=== PATIENT | male | born 1940 | race Caucasian/White ===

== ENCOUNTER → 2016-02-20 | Outpatient (CLI) | payer OTHER ==
[~2016-02-20] MED LIST: ACET-1256 PO; ASPI81TA28 PO; BND25 PO; CHOLTAB3 PO; CIPR-255 PO; CLOP1TAB15 PO; CRDCD180 PO; DRGTP25; DXM/4 PO; ERGO1TAB10 PO; Enteral Nutrition Formula PO; FLUT0.0529 NAE; FLUT0.15 NAE; FOLI400T41 PO; GADAVIST IV PRN; GEMF600T3 PO; HYDR-3419 PO; IPRASOL4 INH; ISOS120T5 PO; LSX20 PO; MEGE40TA13 PO; NEBMAC; NUTR-7 PO; OMEG10007 PO; OXYC1TAB3 PO; PRT40 PO; TPRSR50 PO; VANC1CAP19 PO; VITACAP38 PO; ZNT150 PO
--- NOTE | 2016-02-20 10:10 | DIAGNOSTIC IMAGING REPORT ---
MRI OF THE BRAIN WITHOUT AND WITH IV CONTRAST CLINICAL HISTORY: SECONDARY MALIGNANT NEOPLASM OF BRAIN COMPARISON STUDY: 10/10/2015 TECHNIQUE: Utilizing a 1.5 Mildred magnet and dedicated coil, multiplanar, multiecho imaging of the brain was performed pre and postcontrast administration. IV administration of 8 mL of Gadavist contrast was uneventful. FINDINGS: Diffusion-weighted images show no acute ischemic focus. Findings of atrophy and chronic small vessel change are similar compared to the prior exam. Slight compensatory prominence of the ventricular system unchanged. Postcontrast images transaxially suggests a subtle increase in subcortical activity characteristics the occipital lobes bilaterally. This is not seen on the postcontrast coronal imaging consistent with artifactual change. Previously described enhancing focus within the left temporal lobe and right cerebellum are no longer appreciated. No new enhancing focus is identified. Sella and parasellar regions are unremarkable. Considerable chronic small vessel change is stable. IMPRESSION: 1. Improved exam. 2. The enhancing focus within the left temporal lobe in the mid right cerebellum are no longer present. 3. No evidence for new interval or progressive process. 4. No evidence for abnormal postcontrast enhancement Electronically signed by: Se Bishop M.D. 02/20/2016 10:08 AM
== END | disposition home or self-care (01) ==
LOC: C.MRIBC 08:54
PROVIDERS: ATTEND Radiology Radiation Oncology
DX: C34.90 Malignant neoplasm of unspecified part of unspecified bronchus or lung (principal)

== ENCOUNTER → 2016-02-20 | Outpatient (CLI) | payer OTHER ==
[~2016-02-20] MED LIST changes: -GADAVIST IV PRN
[2016-02-20 17:56] LABS: FERRITIN 121.4 ng/ml (8.0-388.0)
== END | disposition home or self-care (01) ==
LOC: C.LABPVFM 07:45
PROVIDERS: ATTEND Internal Medicine Nephrology
DX: I10 Essential (primary) hypertension (principal); N18.3 Chronic kidney disease, stage 3 (moderate); C34.90 Malignant neoplasm of unspecified part of unspecified bronchus or lung; R80.9 Proteinuria, unspecified; Z72.0 Tobacco use; J44.9 Chronic obstructive pulmonary disease, unspecified; K59.09 Other constipation; A04.7 Enterocolitis due to Clostridium difficile

== ENCOUNTER → 2016-02-24 | Outpatient (CLI) | payer OTHER ==
[~2016-02-24] MED LIST changes: +OPTIRAY 320 IV PRN
--- NOTE | 2016-02-24 14:15 | DIAGNOSTIC IMAGING REPORT ---
CT OF THE CHEST WITH IV CONTRAST CLINICAL HISTORY: Small cell lung cancer. COMPARISON STUDY: Chest CT July 09, 2015 and PET/CT July 17, 2015. TECHNIQUE: Following IV administration of 70 mL of Optiray-320, helical axial images of the chest were obtained. Images were viewed in the axial, sagittal and coronal planes. IV contrast was administered without complication. CT DOSE: 381.67 mGy.cm FINDINGS: The heart is mildly enlarged. There is no pericardial effusion. Mild aneurysmal dilatation of the descending thoracic aorta is unchanged. There is extensive plaque. There are post surgical findings within visualized portions of the abdominal aorta. There is a left renal artery stent. A 1.8 cm right suprahilar nodule shown on image 121 of 361 is slightly increased in size since prior PET/CT. A few additional right suprahilar nodules have slightly increased since prior exam as well. Evaluation of the lungs is difficult due to extensive interstitial lung disease. There is traction bronchiectasis with emphysema and subpleural reticulation and honeycombing. The findings represent interstitial lung disease. There is no pneumothorax or pleural effusion. A T2 vertebral lesion is again noted. Involvement of the posterior elements was shown on prior exam. However, there has been interval development of epidural spread of tumor at this level with involvement of the vertebral body as well. There is associated narrowing of the central canal which is suboptimally assessed by CT but is likely to moderate in degree. Several neural foramen are narrowed. There is also a new T12 compression fracture which is mild in degree. This could be pathologic. Sclerosis of the posterior left 11th rib is new since prior exam. A 2.2 cm retroperitoneal nodule located superior medial to the right kidney is new since prior exam. The dominant previously described right retroperitoneal nodule is similar to prior exam. A few adjacent smaller nodules are new. Marked left renal atrophy is again noted. There are several suspected right renal cyst. IMPRESSION: 1. Findings consistent with progression of metastatic disease since exam of July 17, 2015. Epidural extension of tumor centered at the T2 level which is new since prior exam with moderate central canal and neural foraminal stenosis, suboptimally assessed by CT. In addition, a new T12 mild compression fracture is present which may be pathologic. 2. Slight increase in size of a right suprahilar nodule consistent with metastatic disease. 3. Interval development of several right retroperitoneal nodules adjacent to the previously described dominant retroperitoneal mass consistent with disease progression. Electronically signed by: Rupert Cabrera M.D. 02/24/2016 2:13 PM Dictated Date/Time: 02/24/2016 9:38 AM
== END | disposition home or self-care (01) ==
LOC: C.CTS 09:12
PROVIDERS: ATTEND Internal Medicine Hematology & Oncology
DX: C34.11 Malignant neoplasm of upper lobe, right bronchus or lung (principal); R91.1 Solitary pulmonary nodule; R93.5 Abnormal findings on diagnostic imaging of other abdominal regions, including retroperitoneum; M48.8X4 Other specified spondylopathies, thoracic region; M48.54XA Collapsed vertebra, not elsewhere classified, thoracic region, initial encounter for fracture; X58.XXXA Exposure to other specified factors, initial encounter

== ENCOUNTER 2016-03-22 10:13 | Inpatient (IN) | payer OTHER ==
[~2016-03-22] VITALS: Ht 177.8 cm; Wt 60.3 kg
[~2016-03-22 10:13] MED LIST changes: -CIPR-255 PO; -DXM/4 PO; -ERGO1TAB10 PO; -Enteral Nutrition Formula PO; -FLUT0.15 NAE; -IPRASOL4 INH; -LSX20 PO; -NEBMAC; -OPTIRAY 320 IV PRN; -OXYC1TAB3 PO; -PRT40 PO; -ZNT150 PO
[2016-03-22] MEDS ORDERED: SODIUM CHLORIDE 0.9% 1000ML 500 ML IV STA (10:47)
[2016-03-22] MEDS ORDERED: ERGO1TAB10 PO (11:06)
[2016-03-22] MEDS ORDERED: FLUT0.15 NAE (11:07)
[2016-03-22 11:15] LABS: URINE APPEARANCE CLOUDY (CLEAR); URINE BILIRUBIN NEG (NEG); URINE COLOR YELLOW; URINE EPITHELIAL CELL AUTO 0-5 /lpf (0-5); URINE NITRITE POS (NEG); URINE SPECIFIC GRAVITY 1.018 (1.000-1.030); UROBILINOGEN NEG (NEG); ZZURINE CULT IF INDIC CATH YES
[2016-03-22 11:17] LABS: MANUAL MICROSCOPIC REQUIRED? NO; REVIEW REQ? NO
[2016-03-22 11:29] LABS: HEMATOCRIT 27.7 % (42-52); MEAN CELL VOLUME 95.5 fL (80-100); MEAN CORPUSCULAR HEMOGLOBIN 32.8 pg (25-34); MEAN CORPUSCULAR HGB CONC 34.3 g/dl (32-36); WHITE BLOOD COUNT 2.18 K/uL (4.8-10.8)
[2016-03-22] MEDS ORDERED: CEFTRIAXONE SOD INJ 1 GM ADDVIAL IV STA (11:34)
[2016-03-22] MEDS ORDERED: DILTIAZEM BOLUS / DRIP IV STA (11:41)
--- NOTE | 2016-03-22 11:43 | DIAGNOSTIC IMAGING REPORT ---
CHEST ONE VIEW PORTABLE CLINICAL HISTORY: cough dyspnea COMPARISON STUDY: 01/06/2016 FINDINGS: Chronic bilateral parenchymal fibrotic and interstitial change. Baseline emphysematous change. Diaphragms smooth. Calcific angles are sharp. IMPRESSION: Emphysematous change with evidence for diffuse chronic bilateral parenchymal fibrotic scarring and interstitial change. No new or interval finding. Electronically signed by: Se Bishop M.D. 03/22/2016 11:41 AM Dictated Date/Time: 03/22/2016 11:41 AM
[2016-03-22 11:52] LABS: ALT/SGPT 10 U/L (12-78); AST/SGOT 13 U/L (15-37); BLOOD UREA NITROGEN 15 mg/dl (7-18); BUN/CREATININE RATIO 17.9 (10-20); CALCIUM 9.2 mg/dl (8.5-10.1); CARBON DIOXIDE 24 mmol/L (21-32); CHLORIDE 102 mmol/L (98-107); CREATININE 0.86 mg/dl (0.60-1.40); GLUCOSE 85 mg/dl (70-99); POTASSIUM 4.1 mmol/L (3.5-5.1); SODIUM 136 mmol/L (136-145)
[2016-03-22 11:57] LABS: ALB/GLOB RATIO 0.7 (0.9-2); ALKALINE PHOSPHATASE 62 U/L (45-117)
[2016-03-22 11:58] LABS: MEAN PLATELET VOLUME 9.2 fL (7.4-10.4); PLATELET COUNT 73 K/uL (130-400)
[2016-03-22] MEDS ORDERED: DILTIAZEM HCL 5 MG/ML 5 ML VIAL IV ONE (12:00)
[2016-03-22 12:01] LABS: COMPLETE YES; EOS % 1.4 %; IG% 2.3 %; LYMPH % 4.1 %; LYMPH ABS # 0.09 K/uL (1.2-3.4); MONO % 0.5 %; NEUT % 91.7 %; OVALOCYTES 1+; PLT ESTIMATE DECREASED
[2016-03-22] MEDS: DILTIAZEM HCL INJ 125 MG in DEXTROSE 5% 100ML IV PRN ×2 (12:15→17:18)
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
--- NOTE | 2016-03-22 14:22 | EMERGENCY ROOM VISIT NOTE ---
History Report prepared by Jeaneth: Toño Hanson Under the Supervision of: Dr. Raman Prado M.D. First contact with patient: 10:40 Chief Complaint: UNABLE TO VOID Stated Complaint: CAN'T URINATE X 2 DAYS History of Present Illness The patient is a 76 year old male who presents to the Emergency Room with complaints of persistent urinary retention for the past two days. The patient has been able to void some dribbles. The patient has noticed burning when he stops voiding. The patient denies any fevers or vomiting. The patient is s/p prostatectomy. The patient's has had to catheterize him in the past when he experienced urinary retention. She also notes that during past episodes of urinary retention he has passed blood clots in his urine. The patient wears a Fentanyl patch. He follows up with Dr. Augustin, Urologist. The patient has a history of atrial fibrillation. The patient is being treated for lung cancer. Source of History: patient, spouse/significant other Onset: two days ago Position: other (bladder) Quality: other (retention) Timing: other (persistent) Associated Symptoms: + urinary symptoms, No fevers, No vomiting Review of Systems See HPI for pertinent positives & negatives. A total of 10 systems reviewed and were otherwise negative. Past Medical & Surgical Medical Problems: (1) Abdominal aortic aneurysm (2) Ambulatory dysfunction (3) Carotid endarterectomy (4) diverticulitis, lung cancer recent chemo (5) Intractable back pain (6) kidney failure (7) l5 lesion (8) Lung cancer (9) Non-functioning kidney (10) prostate cancer (11) Sepsis Family History Diabetes mellitus Heart disease Social History Smoking Status: Current Every Day Smoker Alcohol Use: none Drug Use: none Marital Status: Housing Status: lives with family Occupation Status: retired Current/Historical Medications Scheduled Aspirin (Aspirin Ec), 81 MG PO DAILY Clopidogrel (Plavix), 75 MG PO DAILY Diltiazem HCl (Diltiazem HCl ER), 180 MG PO QAM Ergocalciferol (Vitamin D2), 1 TAB PO DAILY Fish Oil ([place]-3), 1 CAP PO DAILY Fluticasone Propionate (Nasal) (Flonase Allergy Relief), 1-2 SPRAYS BRITTANY DAILY Folic Acid (Folvite), 400 MCG PO DAILY Gemfibrozil (Lopid), 600 MG PO BID Isosorbide Mononitrate Ext Rel (Imdur Ext Rel), 120 MG PO QAM Megestrol Acetate (Megace), 40 MG PO QID Metoprolol Succinate (Metoprolol Succinate ER), 100 MG PO DAILY Nutritional Supplements (Boost), 1 CAN PO DAILY Vancomycin Hcl (Vancocin Hcl), 125 MG PO UD Vitamin E (E-1000), 1,000 UNITS PO DAILY Scheduled PRN Acetaminophen (Tylenol), 500 MG PO TID PRN for Pain Diphenhydramine Hcl (Benadryl), 50 MG PO HS PRN for Pain Hydrocodon/Acetaminophen 5MG/300MG (Vicodin (5MG/300MG)), 1 TAB PO Q4H PRN for Pain Miscellaneous Medications Fentanyl (Fentanyl) Allergies Coded Allergies: Prednisone (Verified Allergy, Mild, hives, 03/22/16) Physical Exam Vital Signs Date Time Temp Pulse Resp B/P Pulse Ox O2 Delivery O2 Flow Rate FiO2 03/22/16 14:13 119 16 156/80 96 Nasal Cannula 2.0 03/22/16 13:32 101 18 129/81 94 Room Air 03/22/16 13:00 101 18 151/88 97 Room Air 03/22/16 12:33 104 20 132/74 97 Room Air 03/22/16 12:24 107 20 104/72 97 Room Air 03/22/16 12:18 122 20 129/77 97 Room Air 03/22/16 11:21 141 20 156/94 95 Room Air 03/22/16 11:03 136 03/22/16 10:25 36.5 146 20 131/75 93 Room Air Physical Exam GENERAL: Patient is in no acute distress. HEENT: No acute trauma, normocephalic atraumatic, mucous membranes moist, no nasal congestion, no scleral icterus. NECK: No stridor, no adenopathy, no meningismus, trachea is midline. LUNGS: Course breath sounds bilaterally, no respiratory distress, breath sounds are equal. HEART: Tachycardic with a subtle systolic murmur, rhythm is irregular. ABDOMEN: Soft, tender over the bladder, bowel sounds positive, no hernias, no peritonitis. EXTREMITIES: No cyanosis or edema, full range of motion of all the joints without pain or difficulty, no signs for acute trauma. NEUROLOGIC: Oriented x 3, no acute motor or sensory deficits, no focal weakness. SKIN: No rash, no jaundice, no diaphoresis. Medical Decision & Procedures ER Provider Diagnostic Interpretation: Bladder scan showed 600 ccs of fluid. X-ray results as stated below per interpretation by me and the radiologist: CHEST ONE VIEW PORTABLE CLINICAL HISTORY: cough dyspnea COMPARISON STUDY: 01/06/2016 FINDINGS: Chronic bilateral parenchymal fibrotic and interstitial change. Baseline emphysematous change. Diaphragms smooth. Calcific angles are sharp. IMPRESSION: Emphysematous change with evidence for diffuse chronic bilateral parenchymal fibrotic scarring and interstitial change. No new or interval finding. Electronically signed by: Se Bishop M.D. 03/22/2016 11:41 AM Dictated Date/Time: 03/22/2016 11:41 AM Laboratory Results 03/22/16 11:15 Red Blood Count 2.90, Mean Corpuscular Volume 95.5, Mean Corpuscular Hemoglobin 32.8, Mean Corpuscular Hemoglobin Concent 34.3, Mean Platelet Volume 9.2, Neutrophils (%) (Auto) 91.7, Lymphocytes (%) (Auto) 4.1, Monocytes (%) (Auto) 0.5, Eosinophils (%) (Auto) 1.4, Basophils (%) (Auto) 0.0, Neutrophils # (Auto) 2.00, Lymphocytes # (Auto) 0.09, Monocytes # (Auto) 0.01, Eosinophils # (Auto) 0.03, Basophils # (Auto) 0.00 03/22/16 11:15 Test 03/22/16 11:00 03/22/16 11:15 Urine Color YELLOW Urine Appearance CLOUDY (CLEAR) Urine pH 6.0 (4.5-7.5) Urine Specific [place] 1.018 (1.000-1.030) Urine Protein 1+ (NEG) Urine Glucose (UA) NEG (NEG) Urine Ketones NEG (NEG) Urine Occult Blood 1+ (NEG) Urine Nitrite POS (NEG) Urine Bilirubin NEG (NEG) Urine Urobilinogen NEG (NEG) Urine Leukocyte Esterase MODERATE (NEG) Urine WBC (Auto) >30 /hpf (0-5) Urine RBC (Auto) 0-4 /hpf (0-4) Urine Hyaline Casts (Auto) 1-5 /lpf (0-5) Urine Epithelial Cells (Auto) 0-5 /lpf (0-5) Urine Bacteria (Auto) 4+ (NEG) White Blood Count 2.18 K/uL (4.8-10.8) Red Blood Count 2.90 M/uL (4.7-6.1) Hemoglobin 9.5 g/dL (14.0-18.0) Hematocrit 27.7 % (42-52) Mean Corpuscular Volume 95.5 fL (80-100) Mean Corpuscular Hemoglobin 32.8 pg (25-34) Mean Corpuscular Hemoglobin Concent 34.3 g/dl (32-36) Platelet Count 73 K/uL (130-400) Mean Platelet Volume 9.2 fL (7.4-10.4) Neutrophils (%) (Auto) 91.7 % Lymphocytes (%) (Auto) 4.1 % Monocytes (%) (Auto) 0.5 % Eosinophils (%) (Auto) 1.4 % Basophils (%) (Auto) 0.0 % Neutrophils # (Auto) 2.00 K/uL (1.4-6.5) Lymphocytes # (Auto) 0.09 K/uL (1.2-3.4) Monocytes # (Auto) 0.01 K/uL (0.11-0.59) Eosinophils # (Auto) 0.03 K/uL (0-0.5) Basophils # (Auto) 0.00 K/uL (0-0.2) RDW Standard Deviation 54.2 fL (36.4-46.3) RDW Coefficient of Variation 15.6 % (11.5-14.5) Immature Granulocyte % (Auto) 2.3 % Immature Granulocyte # (Auto) 0.05 K/uL (0.00-0.02) Platelet Estimate DECREASED Ovalocytes 1+ Anion Gap 10.0 mmol/L (3-11) Estimated GFR () 96.9 Estimated GFR (Non- 83.6 BUN/Creatinine Ratio 17.9 (10-20) Calcium Level 9.2 mg/dl (8.5-10.1) Magnesium Level 2.0 mg/dl (1.8-2.4) Total Bilirubin 0.7 mg/dl (0.2-1) Aspartate Amino Transf (AST/SGOT) 13 U/L (15-37) Alanine Aminotransferase (ALT/SGPT) 10 U/L (12-78) Alkaline Phosphatase 62 U/L (45-117) Troponin I 0.032 ng/ml (0-0.045) Total Protein 6.9 gm/dl (6.4-8.2) Albumin 2.9 gm/dl (3.4-5.0) Globulin 4.0 gm/dl (2.5-4.0) Albumin/Globulin Ratio 0.7 (0.9-2) Laboratory results reviewed by me. Medications Administered Medications (Trade) Dose Ordered Sig/Anderson Route Start Time Stop Time Status Last Admin Dose Admin Sodium Chloride (Nss 1000ml) 500 ml @ 999 mls/hr Q31M STAT IV 03/22/16 10:47 03/22/16 11:17 DC 03/22/16 11:20 999 MLS/HR Ceftriaxone Sodium (Rocephin Inj) 1 gm NOW STAT IV 03/22/16 11:34 03/22/16 11:35 DC 03/22/16 11:49 1 GM Diltiazem HCl 10 mg 10 mg TODAY@1200 ONCE IV 03/22/16 12:00 03/22/16 12:01 DC 03/22/16 12:15 10 MG Diltiazem HCl/ Dextrose (Cardizem Inj/D5 100ml) 125 ml @ 0 mls/hr Q0M PRN IV 03/22/16 12:00 04/21/16 11:59 03/22/16 17:18 10 MLS/HR ECG Indication: tachycardia Rate (beats per minute): 131 Rhythm: atrial fibrillation Findings: no acute ischemic change, no ectopy ED Course 1045: The patient was evaluated in room C9. A complete history and physical exam was performed. 1047: NSS 500 ml @ 999 mls/hr. 1134: Rocephin 1 gm Iv. 1141: Cardizem Bolus / Drip 1 ea IV. 1146: Patient is eating currently. He understands the need to stay in the hospital. 1200: Cardizem 125 mg / dextrose 125 ml @ 0 mls/hr, Cardizem 10 mg IV. 1223: Discussed the case with Dr. Guaman, [facility] Hospitalist. The patient will be evaluated. Medical Decision Differential diagnosis includes urinary retention, UTI, dehydration, renal failure, electrolyte imbalance, anemia, atrial fibrillation or flutter, [place]. There is a pancytopenia present. Looking back at his previous testing, this was present a few days ago with outpatient testing as well. He is not technically neutropenic. There was no significant electrolyte abnormality, kidney failure or hepatitis. Urinalysis does show evidence for infection, urine culture is pending. EKG showed a rapid A. fib, no acute ischemia. Chest film shows some chronic findings, no pneumonia or CHF. The patient presents with urinary retention. On workup, he was found to have a UTI and also atrial fibrillation. He has a history of A. fib. The patient received IV saline, IV ceftriaxone. A Maxwell catheter was placed to drain his bladder. He was given IV diltiazem and was placed on a diltiazem drip. The patient looks well, he is really asymptomatic with the A. fib, he does not complain of chest pain or dyspnea. He was able to eat a meal here without difficulty. The diltiazem helped the heart rate dramatically. I did think admission/observation was warranted. I spoke to case management. I talked to the patient and his family. The on-call hospitalist was consulted. Consults Time Called: 1220 Consulting Physician: Dr. Guaman [facility]. Returned Call: 1223 1223: Discussed the case with Dr. Guaman [facility]. The patient will be evaluated. Impression Primary Impression: Urinary retention Additional Impressions: UTI (urinary tract infection) Rapid atrial fibrillation Critical Care I have personally spent greater than 35 minutes of critical care time in the direct management of this patient. This includes bedside care, interpretation of diagnostic studies, and testing, discussion with consultants, patient, and family members, and other required patient management activities. This 35 minutes is in excess of all separately billable procedures. Scribe Attestation The scribe's documentation has been prepared under my direction and personally reviewed by me in its entirety. I confirm that the note above accurately reflects all work, treatment, procedures, and medical decision making performed by me. Departure Information Dispostion Being Evaluated By Hospitalist Drew Cornelius M.D. (PCP) Patient Instructions My [facility] Problem Qualifiers
[2016-03-22] MEDS ORDERED: NITROGLYCERIN 0.4 MG SL PER TAB CHARGE SL PRN (14:30)
[2016-03-22] MEDS ORDERED: DILTIAZEM BOLUS / DRIP IV PRN (14:56)
[2016-03-22] MEDS ORDERED: METOPROLOL TARTRATE 1 MG/ML VIAL IV STA (15:06)
[2016-03-22] MEDS ORDERED: METOPROLOL TARTRATE 1 MG/ML VIAL ONE (15:11)
[2016-03-22] MEDS ORDERED: ISOSORBIDE MONONITRATE 60 MG TABCR PO ONE (15:30)
[2016-03-22 17:00] VITALS: BP 159/87; PULSE 116; TEMP 36.5; Ht 177.8 cm; Wt 60.3 kg
[2016-03-22] MEDS: CHECK FENTANYL PATCH PLACEMENT SCH ×2 (17:00→23:46)
[2016-03-22] MEDS: MEGESTROL ACETATE 40 MG TAB PO SCH ×2 (17:51→21:53)
[2016-03-22] MEDS: DEXAMETHASONE INJ 6 MG in SYRINGE 0 ML IV SCH ×2 (18:25→23:47)
[2016-03-22 19:41] VITALS: BP 143/77; PULSE 103; TEMP 36.8; O2SAT 98
[2016-03-22 20:00] VITALS: O2SAT 98
[2016-03-22] MEDS ORDERED: HEPARIN SOD 5000 UNIT/0.5 ML CARP SQ SCH (21:00)
[2016-03-22] MEDS: GEMFIBROZIL 600 MG TAB PO SCH (21:53)
[2016-03-22 22:34] LABS: CKMB/CK RATIO 5.2 (0-3.0)
--- NOTE | 2016-03-22 23:49 | DIAGNOSTIC IMAGING REPORT ---
THORACIC SPINE MRI HISTORY: Assess for cord compression. 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 COMPARISON: Chest CT 02/24/2016. FINDINGS: Alignment is intact. Trace pleural effusions. Right retroperitoneal metastatic nodules are again noted. The dominant nodule measures 2.8 cm. Atrophic left kidney. Multiple renal cysts. Left lower lobe consolidation remains unchanged. There is complete replacement of the T2 vertebral body and posterior elements with a metastatic lesion. This demonstrates epidural extension surrounding the spinal canal which measures up to 5 mm in thickness. This results in moderate central canal narrowing and abuts but does not significantly compress the cord. The thoracic spinal cord demonstrates a normal signal intensity at this time. However, there is abnormal fluid signal within the epidural space posterior to the T2-T5 vertebral bodies. This is best seen on sagittal sequences images 9 and 10. This measures up to 4 mm in thickness. This abuts but does not significantly deform the thoracic spinal cord. This could represent cystic metastatic extension versus an epidural hematoma. An epidural abscess could also have a similar appearance but is considered less likely given the presentation of findings. Mild degenerative disc disease seen throughout the thoracic spine. Mild anterior wedging within the T12 vertebral body is not significantly changed. There is a 1 cm T2 hypointense focus along the inferior endplate of T12. This is concerning for metastatic deposit and is new from the 06/06/2015 examination. IMPRESSION: 1. Complete replacement of the T2 vertebral body and posterior elements with a metastatic lesion. The soft tissue component demonstrates epidural extension surrounding the spinal canal which results in moderate central canal narrowing. This abuts but does not significant compression of cord. 2. There is also an abnormal fluid signal within the epidural space posterior to the T2-T5 vertebral bodies. This measures up to 4 mm in thickness. This abuts but does not result in deformity of the thoracic spinal cord. This is concerning for an epidural hematoma or cystic metastatic extension. An epidural abscess could also have a similar appearance but is considered less likely given the presentation of findings. 3. A 1 cm lesion along the inferior endplate of T12 which also likely represents a metastatic deposit. Mild anterior wedge-shaped compression deformity is likely pathologic. This does not appear to be acute. 4. The thoracic spinal cord demonstrates a normal signal intensity. 5. Metastatic right retroperitoneal nodules are again noted. 6. Trace bilateral pleural effusions. 7. These findings were discussed with Dr. Cabrera at 11:50 PM on 03/22/2016. Electronically signed by: Paolo Hurtado M.D. 03/23/2016 12:01 AM Dictated Date/Time: 03/22/2016 11:34 PM
--- NOTE | 2016-03-22 23:58 | Progress Note ---
Progress Note contacted about MRI results no cord compression but mild- mod narrowing small fluid collection from T2-T5 most likely a epidural hematoma over an abscess
[2016-03-23] VITALS (11 sets, daily range): BP systolic 101–141; BP diastolic 64–79; PULSE 56–110; TEMP 36.6–36.8; O2SAT 98–100
--- NOTE | 2016-03-23 00:01 | DIAGNOSTIC IMAGING REPORT ---
LUMBAR SPINE MRI HISTORY: Assess for compression of the cauda equina. urinary retention in the setting of met ca to spine TECHNIQUE: Multiplanar multisequence MRI of the lumbar spine was performed without the use of contrast. COMPARISON: Lumbar spine MRI 07/26/2015. FINDINGS: For the purpose of the report the L5-S1 disc space will be located on axial image 23 of 25. Please refer to the same day thoracic spine MRI for further evaluation of this area. No significant change in the metastatic lesion seen within the posterior elements of the L5 level. There is soft tissue extension of tumor into the adjacent erector spinae muscles, unchanged. There may be minimal posterior epidural extension which is also unchanged. However, this does not result in significant mass effect on the thecal sac. No new metastatic lesions identified within the lumbar spine. Mild anterior wedging within the T12 vertebral body and a metastatic deposit are noted. No significant central canal narrowing. There are few small broad-based posterior disc bulges most pronounced at the L2-L3 level. These are not significantly changed. Mild neural foraminal narrowing at L5-S1 persists. Bilateral renal cysts. Mild edema within the erector spinae muscles within the mid to lower lumbar spine is again noted. There is a stable 5 mm metastatic lesion within the left L4 facet. No fractures of dictation within the lumbar spine. IMPRESSION: 1. Overall, no significant change within the lumbar spine compared to the prior study. 2. The metastatic lesions within the posterior elements of L4 and L5 remain unchanged. 3. No significant central canal narrowing. 4. No acute fractures within the lumbar spine. 5. Please refer to the same day thoracic spine MRI for further evaluation of the thoracic spine findings. Electronically signed by: Paolo Hurtado M.D. 03/23/2016 12:00 AM Dictated Date/Time: 03/22/2016 11:49 PM
[2016-03-23] MEDS: DILTIAZEM HCL INJ 125 MG in DEXTROSE 5% 100ML IV PRN ×3 (01:44→12:35)
[2016-03-23 05:21] LABS: HEMATOCRIT 25.8 % (42-52); MEAN CELL VOLUME 93.1 fL (80-100); MEAN CORPUSCULAR HEMOGLOBIN 32.5 pg (25-34); MEAN CORPUSCULAR HGB CONC 34.9 g/dl (32-36); RED BLOOD COUNT 2.77 M/uL (4.7-6.1); WHITE BLOOD COUNT 1.44 K/uL (4.8-10.8)
[2016-03-23] MEDS: DEXAMETHASONE INJ 6 MG in SYRINGE 0 ML IV SCH ×2 (05:29→12:38)
[2016-03-23 05:36] LABS: COMPLETE YES; IG% 2.8 %; LYMPH % 3.5 %; LYMPH ABS # 0.05 K/uL (1.2-3.4); MEAN PLATELET VOLUME 9.8 fL (7.4-10.4); MONO % 1.4 %; NEUT % 92.3 %; PLATELET COUNT 70 K/uL (130-400)
[2016-03-23 05:43] LABS: BUN/CREATININE RATIO 18.7 (10-20); CALCIUM 9.1 mg/dl (8.5-10.1); CREATININE 0.71 mg/dl (0.60-1.40)
[2016-03-23 05:51] LABS: CKMB/CK RATIO 5.3 (0-3.0)
[2016-03-23] MEDS: CHECK FENTANYL PATCH PLACEMENT SCH ×2 (08:26→16:00)
[2016-03-23] MEDS: FoLIC ACID TAB 400 MCG TAB PO SCH (08:27)
[2016-03-23] MEDS: CLOPIDOGREL BISULFATE 75 MG TAB PO SCH (08:27)
[2016-03-23] MEDS: ISOSORBIDE MONONITRATE 60 MG TABCR PO SCH (08:27)
[2016-03-23] MEDS: GEMFIBROZIL 600 MG TAB PO SCH ×2 (08:28→20:10)
[2016-03-23] MEDS: MEGESTROL ACETATE 40 MG TAB PO SCH ×4 (08:28→20:10)
[2016-03-23] MEDS: FLUTICASONE PROPIONATE NA SPR 16 GM BTL NAE SCH (08:28)
[2016-03-23] MEDS: METOPROLOL SUCC 50MG EXT REL TAB PO SCH (08:29)
[2016-03-23] MEDS ORDERED: BOOST VANILLA PO SCH ×2 (09:00)
[2016-03-23] MEDS ORDERED: ASPIRIN 81 MG ECTAB PO SCH (09:00)
--- NOTE | 2016-03-23 11:19 | Oncology Consultation ---
Oncology/Heme Consultation Date of Consultation: Mar 23, 2016. Attending Physician: Albert Garcia M.D. Reason for Consultation: Progressive small cell lung carcinoma History of Present Illness Mr. Mccartney is a 76-year-old gentleman with a history of extensive stage small cell lung carcinoma. Recently he was diagnosed also have [employer] metastasis. He has been treated with agents in the past including more recently Nivolumab but with recent CT scan showing progression he is now on single agent gemcitabine and receiving radiation therapy to his back. He is admitted now with urinary symptoms. He has a history of prostate carcinoma. He denies any fever or chills. He denies any back pain. Past Medical/Surgical History Medical Problems: (1) Anemia Status: Acute (2) Cancer of spinal column Status: Acute (3) Diarrhea Status: Acute (4) Diverticulitis Status: Acute (5) Fall Status: Acute (6) Leukopenia Status: Acute (7) Lower back pain Status: Acute (8) Lower extremity weakness Status: Acute (9) Lumbar compression fracture Status: Acute (10) Metastatic cancer to spine Status: Acute (11) Neutropenia Status: Acute (12) Rapid atrial fibrillation Status: Acute (13) Retrosternal chest pain Status: Acute (14) Small cell lung cancer Status: Acute (15) Urinary retention Status: Acute (16) UTI (urinary tract infection) Status: Acute Social History Problems: (1) Status post chemotherapy Status: Acute Family History Diabetes mellitus Heart disease Social History Smoking Status: Current Some Day Smoker Drug Use: none Marital Status: Housing Status: lives with family Occupation Status: retired Allergies Coded Allergies: Prednisone (Verified Allergy, Mild, hives, 03/22/16) Home Medications Scheduled Aspirin (Aspirin Ec), 81 MG PO DAILY Clopidogrel (Plavix), 75 MG PO DAILY Diltiazem HCl (Diltiazem HCl ER), 180 MG PO QAM Ergocalciferol (Vitamin D2), 1 TAB PO DAILY Fish Oil (Stonewall-3), 1 CAP PO DAILY Fluticasone Propionate (Nasal) (Flonase Allergy Relief), 1-2 SPRAYS BRITTANY DAILY Folic Acid (Folvite), 400 MCG PO DAILY Gemfibrozil (Lopid), 600 MG PO BID Isosorbide Mononitrate Ext Rel (Imdur Ext Rel), 120 MG PO QAM Megestrol Acetate (Megace), 40 MG PO QID Metoprolol Succinate (Metoprolol Succinate ER), 100 MG PO DAILY Nutritional Supplements (Boost), 1 CAN PO DAILY Vancomycin Hcl (Vancocin Hcl), 125 MG PO UD Vitamin E (E-1000), 1,000 UNITS PO DAILY Scheduled PRN Acetaminophen (Tylenol), 500 MG PO TID PRN for Pain Diphenhydramine Hcl (Benadryl), 50 MG PO HS PRN for Pain Hydrocodon/Acetaminophen 5MG/300MG (Vicodin (5MG/300MG)), 1 TAB PO Q4H PRN for Pain Miscellaneous Medications Fentanyl (Fentanyl) Current Inpatient Medications Current Inpatient Medications Medications (Trade) Dose Ordered Sig/Anderson Route Start Time Stop Time Status Last Admin Dose Admin Diltiazem HCl 125 mg/Dextrose 125 ml @ 0 mls/hr Q0M PRN IV 03/22/16 12:00 04/21/16 11:59 03/23/16 08:39 15 MLS/HR Ceftriaxone Sodium 2000 mg/ Dextrose 70 ml @ 100 mls/hr DAILY@1200 IV 03/23/16 12:00 04/01/16 11:59 Dexamethasone Sodium Phosphate/ Syringe (Decadron Inj/ Syringe) 1.5 ml @ 1 mls/min Q6H IV 03/22/16 18:00 04/21/16 14:29 03/23/16 05:29 1 MLS/MIN Heparin Sodium (Porcine) (Heparin Sq 5000 Unit/0.5ml) 5,000 unit Q12 SQ 03/22/16 21:00 04/21/16 20:59 Future Hold 03/22/16 21:11 5,000 UNIT Acetaminophen (Tylenol Tab) 650 mg Q4H PRN PO 03/22/16 14:30 04/21/16 14:29 Ondansetron HCl (Zofran Inj) 4 mg Q6H PRN IV 03/22/16 14:30 04/21/16 14:29 Nitroglycerin (Nitrostat Tab) 0.4 mg UD PRN SL 03/22/16 14:30 04/21/16 14:29 Aspirin (Ecotrin Tab) 81 mg DAILY PO 03/23/16 09:00 04/22/16 08:59 03/23/16 08:28 81 MG Clopidogrel Bisulfate (plAVix TAB) 75 mg DAILY PO 03/23/16 09:00 04/22/16 08:59 03/23/16 08:27 75 MG Fentanyl (Duragesic Patch) 25 mcg Q72H TD 03/25/16 09:00 04/08/16 08:59 Fluticasone Propionate (Flonase Nasal [place]) 1-2 sprays daily DAILY BRITTANY 03/23/16 09:00 04/22/16 08:59 03/23/16 08:28 1 SPRAYS Folic Acid (Folvite Tab) 400 mcg DAILY PO 03/23/16 09:00 04/22/16 08:59 03/23/16 08:27 400 MCG Gemfibrozil (Lopid Tab) 600 mg BID PO 03/22/16 21:00 04/21/16 20:59 03/23/16 08:28 600 MG Isosorbide Mononitrate (Imdur Ext Rel Tab) 120 mg QAM PO 03/23/16 09:00 04/22/16 08:59 03/23/16 08:27 120 MG Megestrol Acetate (Megace Tab) 40 mg QID PO 03/22/16 17:00 04/21/16 16:59 03/23/16 08:28 40 MG Metoprolol Succinate (Toprol Xl Tab) 100 mg DAILY PO 03/23/16 09:00 04/22/16 08:59 03/23/16 08:29 100 MG Enteral Nutritional Formula (Boost) 1 can DAILY PO 03/23/16 09:00 04/22/16 08:59 03/23/16 08:27 1 CAN Miscellaneous (Fentanyl Patch Remove & Waste) 1 ea Q3D N/A 03/25/16 08:59 04/24/16 08:58 Miscellaneous Information (Check Fentanyl Patch Placement) 1 ea QS N/A 03/22/16 16:00 04/21/16 15:59 03/23/16 08:26 1 EA Review of Systems Constitutional: Negative for night sweats, or fever Eyes: Negative for event change of vision ENT: Negative for epistaxis, nasal discharge, sore throat, or deafness Cardiovascular: Negative for chest pain, palpitations, dizziness, diaphoresis Respiratory: Negative for new shortness of breath,hemoptysis, or purulent cough Gastrointestinal: Negative for diarrhea, hematemesis, melena, nausea, vomiting , or dyspepsia Integumentary (skin): Negative for rash or jaundice discoloration Genitourinary: Negative for urinary frequency, hematuria, or dysuria Neurological: Negative for weakness, seizure activity, headache, or dizziness Lymphatic/Hematologic: Negative for petechiae, bleeding or new adenopathy Musculoskeletal: Negative for new joint or back pain Allergic/Immunologic: Negative for unusual rash or pruritis. Physical Exam Date Time Temp Pulse Resp B/P Pulse Ox O2 Delivery O2 Flow Rate FiO2 03/23/16 08:00 36.7 89 24 141/74 100 Nasal Cannula 2.0 03/23/16 04:36 98 Nasal Cannula 2.0 03/23/16 04:00 36.6 92 18 101/66 99 Nasal Cannula 2.0 03/23/16 00:36 98 Nasal Cannula 2.0 03/23/16 00:00 36.8 110 20 141/79 99 Nasal Cannula 2.0 03/22/16 20:00 98 Nasal Cannula 2.0 03/22/16 19:41 36.8 103 20 143/77 98 Nasal Cannula 2.0 03/22/16 17:00 36.5 116 17 159/87 Nasal Cannula 2.0 03/22/16 15:50 109 18 159/86 99 Nasal Cannula 2.0 03/22/16 15:40 126 18 129/99 99 Nasal Cannula 2.0 03/22/16 15:30 106 24 135/107 99 Nasal Cannula 2.0 03/22/16 15:28 124 18 153/111 03/22/16 15:25 135 18 170/109 99 Room Air 03/22/16 15:22 145 18 178/118 99 Nasal Cannula 2.0 03/22/16 15:18 135 175/113 03/22/16 14:13 119 16 156/80 96 Nasal Cannula 2.0 03/22/16 13:32 101 18 129/81 94 Room Air 03/22/16 13:00 101 18 151/88 97 Room Air 03/22/16 12:33 104 20 132/74 97 Room Air 03/22/16 12:24 107 20 104/72 97 Room Air 03/22/16 12:18 122 20 129/77 97 Room Air 03/22/16 11:21 141 20 156/94 95 Room Air Constitutional: vitals are stable. Thin pleasant gentleman Eyes: Eyes are KENJI EOMI without conjuctival erythema or icterus. ENT: External examination was negative for masses. Neck: Negative for masses or palpable thyromegaly Respiratory: Lung sounds were generally clear bilaterally but decreased throughout extremities: Negative for edema erythema Cardiovascular: Heart was RRR without significant murmur, gallops aoe rubs Gastrointestinal: No palpable hepatic or splenomegaly. The abdomen was soft with normal bowel sounds. Lymphatic system: there was no palpable peripheral lymphadenopathy Musculoskeletal System: The musculoskeletal system seemed concordant with age. Skin: The skin was negative for jaundice. Neurologic exam: The exam was negative for any focal findings. Deep tendon reflexes were equal and symmetrical. Psychiatric exam: Was essentially negative with normal mood and effect. Extremities: Negative for edema erythema Laboratory Results Last 24 Hours Test 03/22/16 21:57 03/23/16 05:00 Total Creatine Kinase 25 U/L 19 U/L Creatine Kinase MB 1.3 ng/ml 1.0 ng/ml Creatine Kinase MB Ratio 5.2 5.3 Troponin I 0.192 ng/ml 0.105 ng/ml White Blood Count 1.44 K/uL Red Blood Count 2.77 M/uL Hemoglobin 9.0 g/dL Hematocrit 25.8 % Mean Corpuscular Volume 93.1 fL Mean Corpuscular Hemoglobin 32.5 pg Mean Corpuscular Hemoglobin Concent 34.9 g/dl Platelet Count 70 K/uL Mean Platelet Volume 9.8 fL Neutrophils (%) (Auto) 92.3 % Lymphocytes (%) (Auto) 3.5 % Monocytes (%) (Auto) 1.4 % Eosinophils (%) (Auto) 0.0 % Basophils (%) (Auto) 0.0 % Neutrophils # (Auto) 1.33 K/uL Lymphocytes # (Auto) 0.05 K/uL Monocytes # (Auto) 0.02 K/uL Eosinophils # (Auto) 0.00 K/uL Basophils # (Auto) 0.00 K/uL RDW Standard Deviation 53.0 fL RDW Coefficient of Variation 15.5 % Immature Granulocyte % (Auto) 2.8 % Immature Granulocyte # (Auto) 0.04 K/uL Sodium Level 133 mmol/L Potassium Level 4.0 mmol/L Chloride Level 101 mmol/L Carbon Dioxide Level 22 mmol/L Anion Gap 10.0 mmol/L Blood Urea Nitrogen 13 mg/dl Creatinine 0.71 mg/dl Est Creatinine Clear Calc Drug Dose 74.3 ml/min Estimated GFR () 104.9 Estimated GFR (Non- 90.5 BUN/Creatinine Ratio 18.7 Random Glucose 142 mg/dl Calcium Level 9.1 mg/dl Magnesium Level 2.0 mg/dl Assessment & Plan He is mildly cytopenic and presumably this is from the gemcitabine he also is receiving radiation therapy to his back. I have been in touch with radiation therapy and they will resume his radiation therapy. He'll have a follow-up in our clinic post discharge. He is scheduled for treatment this week but we'll see how his stay goes before planning this week's therapy. The gemcitabine program is weekly day one, day 8 and day 15 every 28 days and he has received day one and day 8.
[2016-03-23] MEDS: CEFTRIAXONE SOD INJ 2,000 MG in DEXTROSE 5% 50ML 50 ML IV SCH (12:37)
[2016-03-23] MEDS: DILTIAZEM HCL 180 MG ER CAP PO SCH (13:32)
--- NOTE | 2016-03-23 14:08 | Hospitalist Progress Note ---
Hospitalist Progress Note Date of Service Mar 23, 2016. (Penny Mathis PA-C) Subjective Pt evaluation today including: conversation w/ patient, conversation w/ family , physical exam, chart review, lab review, review of studies, conversation w/ economic consultant, review of inpatient medication list Patient reports feeling better today. Denies any abdominal pain. No fever or chills. Says that his breathing is "okay." It is at baseline. Denies any chest pain. Additional Comments: 6 system review negative. Please see pertinent positives in the history of present illness section. (ePnny Mathis PA-C) Objective Vital Signs Date Time Temp Pulse Resp B/P Pulse Ox O2 Delivery O2 Flow Rate FiO2 03/23/16 12:00 36.6 63 20 136/75 98 Nasal Cannula 2.0 03/23/16 08:00 36.7 89 24 141/74 100 Nasal Cannula 2.0 03/23/16 08:00 100 Nasal Cannula 2.0 03/23/16 04:36 98 Nasal Cannula 2.0 03/23/16 04:00 36.6 92 18 101/66 99 Nasal Cannula 2.0 03/23/16 00:36 98 Nasal Cannula 2.0 03/23/16 00:00 36.8 110 20 141/79 99 Nasal Cannula 2.0 03/22/16 20:00 98 Nasal Cannula 2.0 03/22/16 19:41 36.8 103 20 143/77 98 Nasal Cannula 2.0 03/22/16 17:00 36.5 116 17 159/87 Nasal Cannula 2.0 03/22/16 15:50 109 18 159/86 99 Nasal Cannula 2.0 03/22/16 15:40 126 18 129/99 99 Nasal Cannula 2.0 03/22/16 15:30 106 24 135/107 99 Nasal Cannula 2.0 03/22/16 15:28 124 18 153/111 03/22/16 15:25 135 18 170/109 99 Room Air 03/22/16 15:22 145 18 178/118 99 Nasal Cannula 2.0 03/22/16 15:18 135 175/113 03/22/16 14:13 119 16 156/80 96 Nasal Cannula 2.0 (Penny Mathis PA-C) Physical Exam General Appearance: + mild distress, + cachetic Eyes: EOMI Neck: no JVD Respiratory/Chest: + pertinent finding (mild wheeze bilaterally. No crackles auscultated.) Cardiovascular: regular rate, rhythm, + pertinent finding (occasionally irregular) Abdomen: normal bowel sounds, non tender, soft Extremities: non-tender, no pedal edema Neurologic/Psychiatric: oriented x 3 Skin: warm/dry (Penny Mathis PA-C) Laboratory Results Last 24 Hours Test 03/22/16 21:57 03/23/16 05:00 Total Creatine Kinase 25 U/L 19 U/L Creatine Kinase MB 1.3 ng/ml 1.0 ng/ml Creatine Kinase MB Ratio 5.2 5.3 Troponin I 0.192 ng/ml 0.105 ng/ml White Blood Count 1.44 K/uL Red Blood Count 2.77 M/uL Hemoglobin 9.0 g/dL Hematocrit 25.8 % Mean Corpuscular Volume 93.1 fL Mean Corpuscular Hemoglobin 32.5 pg Mean Corpuscular Hemoglobin Concent 34.9 g/dl Platelet Count 70 K/uL Mean Platelet Volume 9.8 fL Neutrophils (%) (Auto) 92.3 % Lymphocytes (%) (Auto) 3.5 % Monocytes (%) (Auto) 1.4 % Eosinophils (%) (Auto) 0.0 % Basophils (%) (Auto) 0.0 % Neutrophils # (Auto) 1.33 K/uL Lymphocytes # (Auto) 0.05 K/uL Monocytes # (Auto) 0.02 K/uL Eosinophils # (Auto) 0.00 K/uL Basophils # (Auto) 0.00 K/uL RDW Standard Deviation 53.0 fL RDW Coefficient of Variation 15.5 % Immature Granulocyte % (Auto) 2.8 % Immature Granulocyte # (Auto) 0.04 K/uL Sodium Level 133 mmol/L Potassium Level 4.0 mmol/L Chloride Level 101 mmol/L Carbon Dioxide Level 22 mmol/L Anion Gap 10.0 mmol/L Blood Urea Nitrogen 13 mg/dl Creatinine 0.71 mg/dl Est Creatinine Clear Calc Drug Dose 74.3 ml/min Estimated GFR () 104.9 Estimated GFR (Non- 90.5 BUN/Creatinine Ratio 18.7 Random Glucose 142 mg/dl Calcium Level 9.1 mg/dl Magnesium Level 2.0 mg/dl (Penny Mathis PA-C) Assessment and Plan 76-year-old male presented to the ED with a main complaint of urinary retention for 2 days. The patient does have a history of a urethral stricture that was noted in his outpatient records earlier this month. Also found to be in rapid A. fib with a rate in the 130s. Urinalysis consistent with a UTI A. fib with RVR-likely secondary to sepsis. UTI source. Converted to sinus rhythm this morning -Continue telemetry monitoring throughout the afternoon. They possibly transfer to [facility] later today. -Restart patient's home dose of diltiazem ER 180 mg daily. Then DC Cardizem drip 1 hour later -Continue metoprolol ER 100 mg twice daily -Too much of a fall risk for anticoagulation UTI in the setting of urinary retention, sepsis-afebrile overnight. Vital signs are stable. Improving -Continue Rocephin 2 g IV daily -Continue Villafana for now -Urology input -Urine culture-more than 3 organisms. Will repeat Urinary retention-? neurogenic bladder -MRI of the spine reviewed. No signs of cord compression. -DC Decadron IV COPD-breathing baseline -nebs prn -Will continue with Decadron 4 mg po BID as pt's lungs are much improved today -Consider addition of Symbicort when pt isn't Neutropenic History of coronary artery disease. No anginal symptoms today. Had a mild elevation in his troponin, that is now trending down. This is likely secondary to A. fib with RVR/demand ischemia -Continue aspirin 81 mg daily -Continue Plavix 75 mg daily -Continue Imdur extended release 120 mg daily -Continue to hold home dose of Lasix 20 mg for one more day Metastatic small cell lung CA-mets to brain, thoracic, lumbar spine, retroperitoneum-recent CT/MRI shows disease progression -progressive disease at T2 and in the retroperitoneum -Wishes to continue chemo/radiation ? Fluid collection in the epidural space per MRI of the T2 -I would guess this is likely a hematoma given the compression fracture there as opposed to abscess -will monitor for increased back pain or neuro sx-would prefer to keep pt on ASA and Plavix for now C. diff colitis-resolving. No diarrhea -f/u ID outpt DVT prophylaxis -Heparin 5000 u BID -TEDS, SCDs CODE STATUS -LEVEL V DO NO RESUSCITATE DISPO -pt looking at hospice soon -PT/OT eval-? placement (Penny Mathis, PATroy) PA Physician Supervision Note: I interviewed and examined the patient. Discussed with Penny Mathis PAC and agree with findings and plan as documented in the note. Any exceptions or clarifications are listed here: None Pt feels improved after villafana is placed, at bedside, did see urology today and recommends d/c with villafana vitals stable , converted from afib to nsr car is reg lungs with rhonchi at bases R>L Pt with urinary retention and uti after office procedure for urethral stricture continue antibiotics, await culture oncology is seeing to help delineate future treatment plans of metastatic small cell ca of lung Documented By: Albert Garcia (Albert Garcia M.D.)
[2016-03-23] MEDS: BOOST VANILLA PO SCH ×2 (16:45)
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
[2016-03-24] VITALS (11 sets, daily range): BP systolic 132–179; BP diastolic 62–85; PULSE 61–76; TEMP 36.4–36.8; O2SAT 95–100
[2016-03-24] MEDS: CHECK FENTANYL PATCH PLACEMENT SCH ×4 (00:07→23:51)
[2016-03-24 06:37] LABS: MEAN CELL VOLUME 92.6 fL (80-100); MEAN CORPUSCULAR HEMOGLOBIN 32.6 pg (25-34); MEAN CORPUSCULAR HGB CONC 35.2 g/dl (32-36); WHITE BLOOD COUNT 2.33 K/uL (4.8-10.8)
[2016-03-24 06:42] LABS: PLATELET COUNT 69 K/uL (130-400)
[2016-03-24 06:43] LABS: BUN/CREATININE RATIO 26.9 (10-20); CALCIUM 9.1 mg/dl (8.5-10.1); CARBON DIOXIDE 22 mmol/L (21-32); CHLORIDE 99 mmol/L (98-107); CREATININE 0.77 mg/dl (0.60-1.40); GLUCOSE 119 mg/dl (70-99); POTASSIUM 4.5 mmol/L (3.5-5.1); SODIUM 133 mmol/L (136-145)
[2016-03-24 07:16] LABS: BLOOD UREA NITROGEN 21 mg/dl (7-18); PROSTATE SPECIFIC ANTIGEN < 0.010 ng/ml (0.000-4.000)
[2016-03-24] MEDS: BOOST VANILLA PO SCH ×6 (07:30→17:00)
[2016-03-24 07:45] LABS: COMPLETE YES; IG% 0.9 %; LYMPH % 4.7 %; LYMPH ABS # 0.11 K/uL (1.2-3.4); MONO % 4.3 %; NEUT % 90.1 %; OVALOCYTES 3+
[2016-03-24] MEDS: FLUTICASONE PROPIONATE NA SPR 16 GM BTL NAE SCH (07:58)
[2016-03-24] MEDS: DEXAMETHASONE 4 MG TAB PO SCH ×2 (08:04→19:58)
[2016-03-24] MEDS: METOPROLOL SUCC 50MG EXT REL TAB PO SCH (08:05)
[2016-03-24] MEDS: FoLIC ACID TAB 400 MCG TAB PO SCH (08:05)
[2016-03-24] MEDS: MEGESTROL ACETATE 40 MG TAB PO SCH ×4 (08:05→19:57)
[2016-03-24] MEDS: CLOPIDOGREL BISULFATE 75 MG TAB PO SCH (08:05)
[2016-03-24] MEDS: ISOSORBIDE MONONITRATE 60 MG TABCR PO SCH (08:06)
[2016-03-24] MEDS: GEMFIBROZIL 600 MG TAB PO SCH ×2 (08:06→19:57)
--- NOTE | 2016-03-24 08:31 | Progress Note ---
Subjective Date of Service: Mar 24, 2016. Subjective Pt evaluation today including: conversation w/ patient, chart review, lab review Voiding: villafana catheter in place (patent, draining, clear, yellow urine ) 76 yo male with stricture. Villafana remains in place draining clear, yellow urine. Pt denies pain this morning. Problem List Medical Problems: (1) Anemia Status: Acute (2) Cancer of spinal column Status: Acute (3) Diarrhea Status: Acute (4) Diverticulitis Status: Acute (5) Fall Status: Acute (6) Leukopenia Status: Acute (7) Lower back pain Status: Acute (8) Lower extremity weakness Status: Acute (9) Lumbar compression fracture Status: Acute (10) Metastatic cancer to spine Status: Acute (11) Neutropenia Status: Acute (12) Rapid atrial fibrillation Status: Acute (13) Retrosternal chest pain Status: Acute (14) Small cell lung cancer Status: Acute (15) Urinary retention Status: Acute (16) UTI (urinary tract infection) Status: Acute Social History Problems: (1) Status post chemotherapy Status: Acute Review of Systems Constitutional: No chills, No fever Respiratory: No shortness of breath Cardiac: No chest pain Abdomen: No nausea, No pain, No vomiting Male : No dysuria, No hematuria Heme: No abnormal bleeding/bruising Objective Vital Signs Date Time Temp Pulse Resp B/P Pulse Ox O2 Delivery O2 Flow Rate FiO2 03/24/16 07:30 36.4 64 24 166/85 99 3.0 03/24/16 04:15 36.8 76 19 179/84 100 Nasal Cannula 3.0 03/24/16 04:00 Nasal Cannula 2.0 03/24/16 04:00 154/82 03/24/16 00:03 36.8 66 17 160/80 100 Nasal Cannula 3.0 03/24/16 00:00 Nasal Cannula 2.0 03/23/16 20:00 Nasal Cannula 2.0 03/23/16 19:58 36.7 60 18 132/64 100 2.0 03/23/16 16:00 98 Nasal Cannula 2.0 03/23/16 15:53 36.6 56 18 141/76 100 2.0 03/23/16 14:56 36.6 56 20 136/75 100 03/23/16 13:34 65 100 03/23/16 12:00 98 Nasal Cannula 2.0 03/23/16 12:00 36.6 63 20 136/75 98 Nasal Cannula 2.0 Physical Exam General Appearance: no apparent distress Eyes: normal inspection ENT: hearing grossly normal Neck: no JVD Respiratory/Chest: no respiratory distress, no accessory muscle use Cardiovascular: no JVD Extremities: normal inspection Neurologic/Psychiatric: alert, normal mood/affect, oriented x 3 Skin: normal color Laboratory Results Last 24 Hours Test 03/24/16 05:20 White Blood Count 2.33 K/uL Red Blood Count 2.70 M/uL Hemoglobin 8.8 g/dL Hematocrit 25.0 % Mean Corpuscular Volume 92.6 fL Mean Corpuscular Hemoglobin 32.6 pg Mean Corpuscular Hemoglobin Concent 35.2 g/dl Platelet Count 69 K/uL Mean Platelet Volume 10.0 fL Neutrophils (%) (Auto) 90.1 % Lymphocytes (%) (Auto) 4.7 % Monocytes (%) (Auto) 4.3 % Eosinophils (%) (Auto) 0.0 % Basophils (%) (Auto) 0.0 % Neutrophils # (Auto) 2.10 K/uL Lymphocytes # (Auto) 0.11 K/uL Monocytes # (Auto) 0.10 K/uL Eosinophils # (Auto) 0.00 K/uL Basophils # (Auto) 0.00 K/uL RDW Standard Deviation 52.5 fL RDW Coefficient of Variation 15.6 % Immature Granulocyte % (Auto) 0.9 % Immature Granulocyte # (Auto) 0.02 K/uL Ovalocytes 3+ Sodium Level 133 mmol/L Potassium Level 4.5 mmol/L Chloride Level 99 mmol/L Carbon Dioxide Level 22 mmol/L Anion Gap 12.0 mmol/L Blood Urea Nitrogen 21 mg/dl Creatinine 0.77 mg/dl Est Creatinine Clear Calc Drug Dose 68.5 ml/min Estimated GFR () 101.5 Estimated GFR (Non- 87.5 BUN/Creatinine Ratio 26.9 Random Glucose 119 mg/dl Calcium Level 9.1 mg/dl Prostate Specific Antigen < 0.010 ng/ml Assessment and Plan A/P: Urethral stricture Recommend leaving villafana catheter in place for a few days. Will plan for outpatient trial of void at that time. May need intermittent CIC in the future to keep CIC patent. The pt will keep his f/u appt as scheduled with Dr. Augustin. Pt OK for d/c home when OK with primary service. Discharge planning: home
[2016-03-24] MEDS: ALBUT/IPRATROP 3MG/0.5MG NEB 3 ML VIAL INH SCH ×5 (08:52→19:26)
[2016-03-24] MEDS ORDERED: DEXAMETHASONE 4 MG TAB PO SCH (09:00)
[2016-03-24] MEDS: DILTIAZEM HCL 180 MG ER CAP PO SCH (09:32)
[2016-03-24] MEDS: CEFTRIAXONE SOD INJ 2,000 MG in DEXTROSE 5% 50ML 50 ML IV SCH (14:55)
--- NOTE | 2016-03-24 15:09 | Progress Note ---
Subjective Date of Service: Mar 24, 2016. Subjective pt has variable respiratory distress in part from copd and maybe underlying malignancy or xrt, family states is for chemo this and wonders if will get it here Problem List Medical Problems: (1) Anemia Status: Acute (2) Cancer of spinal column Status: Acute (3) Diarrhea Status: Acute (4) Diverticulitis Status: Acute (5) Fall Status: Acute (6) Leukopenia Status: Acute (7) Lower back pain Status: Acute (8) Lower extremity weakness Status: Acute (9) Lumbar compression fracture Status: Acute (10) Metastatic cancer to spine Status: Acute (11) Neutropenia Status: Acute (12) Rapid atrial fibrillation Status: Acute (13) Retrosternal chest pain Status: Acute (14) Small cell lung cancer Status: Acute (15) Urinary retention Status: Acute (16) UTI (urinary tract infection) Status: Acute Social History Problems: (1) Status post chemotherapy Status: Acute Review of Systems Constitutional: + fatigue, + weakness, No chills, No fever Respiratory: + cough, + dyspnea at rest, + dyspnea on exertion, + shortness of breath, + sputum, + wheezing Cardiac: No chest pain, No edema Abdomen: No diarrhea, No nausea, No pain, No vomiting Male : + dysuria, + hematuria, + problem reported (has villafana), No urinary frequency Objective Vital Signs Date Time Temp Pulse Resp B/P Pulse Ox O2 Delivery O2 Flow Rate FiO2 03/24/16 04:15 36.8 76 19 179/84 100 Nasal Cannula 3.0 03/24/16 04:00 Nasal Cannula 2.0 03/24/16 04:00 154/82 03/24/16 00:03 36.8 66 17 160/80 100 Nasal Cannula 3.0 03/24/16 00:00 Nasal Cannula 2.0 03/23/16 20:00 Nasal Cannula 2.0 03/23/16 19:58 36.7 60 18 132/64 100 2.0 03/23/16 16:00 98 Nasal Cannula 2.0 03/23/16 15:53 36.6 56 18 141/76 100 2.0 03/23/16 14:56 36.6 56 20 136/75 100 03/23/16 13:34 65 100 03/23/16 12:00 98 Nasal Cannula 2.0 03/23/16 12:00 36.6 63 20 136/75 98 Nasal Cannula 2.0 03/23/16 08:00 36.7 89 24 141/74 100 Nasal Cannula 2.0 03/23/16 08:00 100 Nasal Cannula 2.0 Physical Exam General Appearance: + mild distress, + thin Neck: supple, no JVD Respiratory/Chest: + respiratory distress, + decreased breath sounds, + accessory muscle use Cardiovascular: regular rate, rhythm, + systolic murmur Abdomen: normal bowel sounds, non tender, soft Extremities: no pedal edema, no calf tenderness Neurologic/Psychiatric: alert, oriented x 3 Laboratory Results Last 24 Hours Test 03/24/16 05:20 White Blood Count 2.33 K/uL Red Blood Count 2.70 M/uL Hemoglobin 8.8 g/dL Hematocrit 25.0 % Mean Corpuscular Volume 92.6 fL Mean Corpuscular Hemoglobin 32.6 pg Mean Corpuscular Hemoglobin Concent 35.2 g/dl Platelet Count 69 K/uL Mean Platelet Volume 10.0 fL RDW Standard Deviation 52.5 fL RDW Coefficient of Variation 15.6 % Sodium Level 133 mmol/L Potassium Level 4.5 mmol/L Chloride Level 99 mmol/L Carbon Dioxide Level 22 mmol/L Anion Gap 12.0 mmol/L Blood Urea Nitrogen 21 mg/dl Creatinine 0.77 mg/dl Est Creatinine Clear Calc Drug Dose 68.5 ml/min Estimated GFR () 101.5 Estimated GFR (Non- 87.5 BUN/Creatinine Ratio 26.9 Random Glucose 119 mg/dl Calcium Level 9.1 mg/dl Prostate Specific Antigen < 0.010 ng/ml Assessment and Plan 76-year-old male presented to the ED with a main complaint of urinary retention , history of recent outpt manipulation of a urethral stricture by urology via cystoscopy. had abnormal ua on presentation consistent with uti poa and was in AFIB RVR likely from physiologic stressors, since has developed acute on chronic hypoxic respiratory failure from minor COPD exacerbation A. fib with RVR secondary to sepsis, UTI source,poa. Converted to sinus rhythm 03/23 Stopped GTT and resume diltiazem ER 180 mg daily. plus metoprolol 100 bid Sepsis from uti poa, Rocephin 2 g IV daily -Urology did see and recommends discharge with villafana and will follow in office to determine need for CIC vs not COPD-with history of small cell lung cancer , minor exacerbation Decadron 4 mg po BID plus nebs, pt states uses oxygen and nebs at home coronary artery disease. 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 DVT prophylaxis platelets are lower and caution with thoracic spine hematoma, use mechanical means although high risk with CA LEVEL V DO NO RESUSCITATE
[2016-03-24] MEDS: ACETAMINOPHEN 325 MG TAB PO PRN (16:19)
[2016-03-25] VITALS (9 sets, daily range): BP systolic 131–172; BP diastolic 69–84; PULSE 61–80; TEMP 36.7–36.9; O2SAT 96–98
[2016-03-25 05:58] LABS: HEMATOCRIT 25.5 % (42-52); MEAN CELL VOLUME 92.4 fL (80-100); MEAN CORPUSCULAR HEMOGLOBIN 32.6 pg (25-34); MEAN CORPUSCULAR HGB CONC 35.3 g/dl (32-36); RED BLOOD COUNT 2.76 M/uL (4.7-6.1); WHITE BLOOD COUNT 2.64 K/uL (4.8-10.8)
[2016-03-25 05:59] LABS: BASO % 0.4 %; BASO ABS # 0.01 K/uL (0-0.2); COMPLETE YES; IG% 0.8 %; LYMPH ABS # 0.21 K/uL (1.2-3.4); MEAN PLATELET VOLUME 10.1 fL (7.4-10.4); MONO % 0.8 %; PLATELET COUNT 47 K/uL (130-400)
[2016-03-25] MEDS: ALBUT/IPRATROP 3MG/0.5MG NEB 3 ML VIAL INH SCH ×4 (07:38→19:38)
[2016-03-25] MEDS: BOOST VANILLA PO SCH ×4 (08:00→17:44)
[2016-03-25] MEDS: FLUTICASONE PROPIONATE NA SPR 16 GM BTL NAE SCH (08:00)
[2016-03-25] MEDS: CHECK FENTANYL PATCH PLACEMENT SCH ×2 (08:00→16:10)
--- NOTE | 2016-03-25 08:22 | Progress Note ---
Subjective Date of Service: Mar 25, 2016. Subjective Pt evaluation today including: chart review, lab review Voiding: villafana catheter in place (patent, draining clear, yellow urine ) 76 yo male with urethral stricture. Villafana remains in place this morning. Pt resting comfortably, and not disturbed. UC&S noted to be negative. Problem List Medical Problems: (1) Anemia Status: Acute (2) Cancer of spinal column Status: Acute (3) Diarrhea Status: Acute (4) Diverticulitis Status: Acute (5) Fall Status: Acute (6) Leukopenia Status: Acute (7) Lower back pain Status: Acute (8) Lower extremity weakness Status: Acute (9) Lumbar compression fracture Status: Acute (10) Metastatic cancer to spine Status: Acute (11) Neutropenia Status: Acute (12) Rapid atrial fibrillation Status: Acute (13) Retrosternal chest pain Status: Acute (14) Small cell lung cancer Status: Acute (15) Urinary retention Status: Acute (16) UTI (urinary tract infection) Status: Acute Social History Problems: (1) Status post chemotherapy Status: Acute Review of Systems Pt sleeping comfortably this morning, and not disturbed. Objective Vital Signs Date Time Temp Pulse Resp B/P Pulse Ox O2 Delivery O2 Flow Rate FiO2 03/25/16 07:57 36.7 69 20 172/84 98 Room Air 03/25/16 07:38 69 16 96 Nasal Cannula 2.0 03/25/16 00:05 Room Air 03/24/16 20:00 Room Air 03/24/16 19:26 61 16 96 Room Air 03/24/16 17:23 Room Air 03/24/16 17:08 36.7 66 24 146/71 96 Room Air 03/24/16 16:52 36.6 67 27 97 2.0 03/24/16 16:00 36.6 27 137/73 97 Room Air 03/24/16 16:00 97 Room Air 03/24/16 15:48 65 18 95 Nasal Cannula 2.0 03/24/16 11:02 36.6 67 20 132/62 100 Nasal Cannula 03/24/16 08:53 70 18 96 Nasal Cannula 2.0 03/24/16 08:26 Nasal Cannula 2.5 Physical Exam General Appearance: no apparent distress Neck: no JVD Respiratory/Chest: no respiratory distress, no accessory muscle use Cardiovascular: no JVD Extremities: normal inspection Neurologic/Psychiatric: + pertinent finding (Pt sleeping. ) Skin: normal color Laboratory Results Last 24 Hours Test 03/25/16 05:46 White Blood Count 2.64 K/uL Red Blood Count 2.76 M/uL Hemoglobin 9.0 g/dL Hematocrit 25.5 % Mean Corpuscular Volume 92.4 fL Mean Corpuscular Hemoglobin 32.6 pg Mean Corpuscular Hemoglobin Concent 35.3 g/dl Platelet Count 47 K/uL Mean Platelet Volume 10.1 fL Neutrophils (%) (Auto) 90.0 % Lymphocytes (%) (Auto) 8.0 % Monocytes (%) (Auto) 0.8 % Eosinophils (%) (Auto) 0.0 % Basophils (%) (Auto) 0.4 % Neutrophils # (Auto) 2.38 K/uL Lymphocytes # (Auto) 0.21 K/uL Monocytes # (Auto) 0.02 K/uL Eosinophils # (Auto) 0.00 K/uL Basophils # (Auto) 0.01 K/uL RDW Standard Deviation 52.3 fL RDW Coefficient of Variation 15.6 % Immature Granulocyte % (Auto) 0.8 % Immature Granulocyte # (Auto) 0.02 K/uL Nucleated RBC Absolute Count (auto) 0.02 K/uL Nucleated Red Blood Cells % 0.8 % Assessment and Plan A/P: Urethral stricture Recommend leaving villafana catheter in place for 1 week. Will plan for outpatient trial of void at that time. May need intermittent CIC in the future to keep CIC patent. Will arrange for outpatient f/u with Dr. Augustin in 2-3 weeks. Pt OK for d/c home when OK with primary service. No further management at this time. Recall PRN issues. Thanks for allowing us to participate in his care. Discharge planning: home
[2016-03-25] MEDS: DEXAMETHASONE 4 MG TAB PO SCH ×2 (08:39→20:48)
[2016-03-25] MEDS: DILTIAZEM HCL 180 MG ER CAP PO SCH (08:40)
[2016-03-25] MEDS: FoLIC ACID TAB 400 MCG TAB PO SCH (08:41)
[2016-03-25] MEDS: ISOSORBIDE MONONITRATE 60 MG TABCR PO SCH (08:41)
[2016-03-25] MEDS: CLOPIDOGREL BISULFATE 75 MG TAB PO SCH (08:42)
[2016-03-25] MEDS: METOPROLOL SUCC 50MG EXT REL TAB PO SCH (08:42)
[2016-03-25] MEDS: MEGESTROL ACETATE 40 MG TAB PO SCH ×4 (08:42→20:48)
[2016-03-25] MEDS: GEMFIBROZIL 600 MG TAB PO SCH ×2 (08:42→20:47)
[2016-03-25] MEDS ORDERED: FENTANYL PATCH REMOVE & WASTE SCH (08:59)
[2016-03-25] MEDS ORDERED: FENTANYL 25 MCG/HR TDSY TD SCH (09:00)
[2016-03-25] MEDS: ACETAMINOPHEN 325 MG TAB PO PRN (10:54)
[2016-03-25] MEDS: CEFTRIAXONE SOD INJ 2,000 MG in DEXTROSE 5% 50ML 50 ML IV SCH (12:49)
--- NOTE | 2016-03-25 13:25 | Hospitalist Progress Note ---
Hospitalist Progress Note Date of Service Mar 25, 2016. (Penny Mathis PA-C) Subjective Pt evaluation today including: conversation w/ patient, physical exam, chart review, lab review, conversation w/ financial services consultant, review of inpatient medication list Patient reports pain in his back today. Worse than normal. He had a radiation session yesterday, which seems to make the pain worse. He says that his breathing is baseline. Denies any increased dyspnea. mild productive cough. Not new. Denies any chest pain or pressure. No heart palpitations. Additional Comments: 6 system review negative. Please see pertinent positives in the history of present illness section. (Penny Mathis PA-C) Objective Vital Signs Date Time Temp Pulse Resp B/P Pulse Ox O2 Delivery O2 Flow Rate FiO2 03/25/16 11:15 80 16 96 Room Air 03/25/16 10:55 36.7 68 20 150/69 96 Room Air 03/25/16 09:28 98 Room Air 03/25/16 08:00 Room Air 03/25/16 07:57 36.7 69 20 172/84 98 Room Air 03/25/16 07:38 69 16 96 Nasal Cannula 2.0 03/25/16 00:05 Room Air 03/24/16 20:00 Room Air 03/24/16 19:26 61 16 96 Room Air 03/24/16 17:23 Room Air 03/24/16 17:08 36.7 66 24 146/71 96 Room Air 03/24/16 16:52 36.6 67 27 97 2.0 03/24/16 16:00 36.6 27 137/73 97 Room Air 03/24/16 16:00 97 Room Air 03/24/16 15:48 65 18 95 Nasal Cannula 2.0 (Penny Mathis PA-C) Physical Exam General Appearance: + mild distress (in moderate discomfort) Neck: no JVD Respiratory/Chest: + pertinent finding (mild diffuse wheeze. Crackles at the bases bilaterally.) Cardiovascular: + irregularly irregular Abdomen: normal bowel sounds, non tender, soft Extremities: non-tender, no pedal edema Neurologic/Psychiatric: alert, oriented x 3 Skin: + pertinent finding (petechiae noted on the face and arms) (Penny Mathis PA-C) Laboratory Results Last 24 Hours Test 03/25/16 05:46 White Blood Count 2.64 K/uL Red Blood Count 2.76 M/uL Hemoglobin 9.0 g/dL Hematocrit 25.5 % Mean Corpuscular Volume 92.4 fL Mean Corpuscular Hemoglobin 32.6 pg Mean Corpuscular Hemoglobin Concent 35.3 g/dl Platelet Count 47 K/uL Mean Platelet Volume 10.1 fL Neutrophils (%) (Auto) 90.0 % Lymphocytes (%) (Auto) 8.0 % Monocytes (%) (Auto) 0.8 % Eosinophils (%) (Auto) 0.0 % Basophils (%) (Auto) 0.4 % Neutrophils # (Auto) 2.38 K/uL Lymphocytes # (Auto) 0.21 K/uL Monocytes # (Auto) 0.02 K/uL Eosinophils # (Auto) 0.00 K/uL Basophils # (Auto) 0.01 K/uL RDW Standard Deviation 52.3 fL RDW Coefficient of Variation 15.6 % Immature Granulocyte % (Auto) 0.8 % Immature Granulocyte # (Auto) 0.02 K/uL Nucleated RBC Absolute Count (auto) 0.02 K/uL Nucleated Red Blood Cells % 0.8 % (Penny Mathis, REMI) Assessment and Plan 76-year-old male presented to the ED with a main complaint of urinary retention for 2 days. The patient does have a history of a urethral stricture that was noted in his outpatient records earlier this month. Also found to be in rapid A. fib with a rate in the 130s. Urinalysis consistent with a UTI A. fib with RVR-likely secondary to sepsis. UTI source. Converted to sinus rhythm on 03/23 -was on diltiazem drip. This has been discontinued -Continue home dose of diltiazem ER 180 mg daily. -Continue metoprolol ER 100 mg twice daily -Too much of a fall risk for anticoagulation (also Thrombocytopenia) Pancytopenia-platelets worsening-petechiae on exam -DVT prophylaxis was discontinued -ASA taken off. Will d/c Plavix for now -We'll discuss with heme/onc UTI in the setting of urinary retention, sepsis-stable -Continue Rocephin 2 g IV daily -Urology on board. Will be discharged with a Maxwell and urologic follow-up in 2- 3 weeks -Unable to obtain a good urine culture Urinary retention-? neurogenic bladder vs urethral stricture -MRI of the spine reviewed. No signs of cord compression. -DC Decadron IV COPD-breathing baseline -nebs prn -Continue Decadron 4 mg po BID History of coronary artery disease. No anginal symptoms today. Had a mild elevation in his troponin, that is now trending down. This is likely secondary to A. fib with RVR/demand ischemia -Continue Imdur extended release 120 mg daily -Restart Lasix 20 mg daily Metastatic small cell lung CA-mets to brain, thoracic, lumbar spine, retroperitoneum-recent CT/MRI shows disease progression -progressive disease at T2 and in the retroperitoneum -Wishes to continue chemo/radiation, but it is currently on hold. ? Fluid collection in the epidural space per MRI of the T2 -likely hematoma -ASA discontinued -will also unfortunately d/c Plavix now too C. diff colitis-resolving. No diarrhea -f/u ID outpt DVT prophylaxis -AC contraindicated -TEDS, SCDs CODE STATUS -LEVEL V DO NO RESUSCITATE DISPO -hoping for d/c home (Penny Mathis, PA-C) PA Physician Supervision Note: I interviewed and examined the patient. Discussed with Penny Mathis PAC and agree with findings and plan as documented in the note. Any exceptions or clarifications are listed here: None Pt has some lung pain he attributes to XRT, still sob but likley at baseline given his degree of disease lungs with coarse rhonchi L>R base car is reg does not sound to be in afib COPD/XRT/small cell lung cancer, supportive care, nebs and steroids, still coordinating with oncology if systemic chemo but currently is becomming thrombocytopenic, holding plavix at this time and follow Documented By: Albert Garcia (Albert Garcia M.D.)
[2016-03-25] MEDS: FUROSEMIDE 20 MG TAB PO SCH (16:09)
[2016-03-26] VITALS (11 sets, daily range): BP systolic 109–183; BP diastolic 73–84; PULSE 62–111; TEMP 36.4–36.8; O2SAT 93–98
[2016-03-26] MEDS: CHECK FENTANYL PATCH PLACEMENT SCH ×4 (01:00→23:31)
[2016-03-26 07:43] LABS: HEMATOCRIT 28.5 % (42-52); MEAN CELL VOLUME 92.2 fL (80-100); MEAN CORPUSCULAR HGB CONC 34.7 g/dl (32-36); RED BLOOD COUNT 3.09 M/uL (4.7-6.1); WHITE BLOOD COUNT 3.23 K/uL (4.8-10.8)
[2016-03-26] MEDS: ALBUT/IPRATROP 3MG/0.5MG NEB 3 ML VIAL INH SCH ×4 (07:43→19:47)
[2016-03-26 07:46] LABS: COMPLETE YES; IG% 1.9 %; LYMPH ABS # 0.26 K/uL (1.2-3.4); MEAN PLATELET VOLUME 10.7 fL (7.4-10.4); NEUT % 86.1 %; PLATELET COUNT 55 K/uL (130-400)
[2016-03-26] MEDS: BOOST VANILLA PO SCH ×4 (08:14→18:04)
[2016-03-26] MEDS: DEXAMETHASONE 4 MG TAB PO SCH ×2 (08:14→20:03)
[2016-03-26] MEDS: DILTIAZEM HCL 180 MG ER CAP PO SCH (08:14)
[2016-03-26] MEDS: FLUTICASONE PROPIONATE NA SPR 16 GM BTL NAE SCH (08:14)
[2016-03-26] MEDS: FoLIC ACID TAB 400 MCG TAB PO SCH (08:15)
[2016-03-26] MEDS: FUROSEMIDE 20 MG TAB PO SCH (08:15)
[2016-03-26] MEDS: ISOSORBIDE MONONITRATE 60 MG TABCR PO SCH (08:15)
[2016-03-26] MEDS: MEGESTROL ACETATE 40 MG TAB PO SCH ×4 (08:16→20:03)
[2016-03-26] MEDS: GEMFIBROZIL 600 MG TAB PO SCH ×2 (08:16→20:04)
[2016-03-26] MEDS: METOPROLOL SUCC 50MG EXT REL TAB PO SCH (08:17)
[2016-03-26 08:22] LABS: OVALOCYTES 1+
--- NOTE | 2016-03-26 09:21 | Hematology/Oncology Prog Note ---
Hematology/Onc Progress Note Date of Service Mar 26, 2016. Diagnoses Recurrent small cell lung cancer Medications Medications Administered Medications (Trade) Dose Ordered Sig/Anderson Route Start Time Stop Time Status Last Admin Dose Admin Sodium Chloride (Nss 1000ml) 500 ml @ 999 mls/hr Q31M STAT IV 03/22/16 10:47 03/22/16 11:17 DC 03/22/16 11:20 999 MLS/HR Ceftriaxone Sodium (Rocephin Inj) 1 gm NOW STAT IV 03/22/16 11:34 03/22/16 11:35 DC 03/22/16 11:49 1 GM Diltiazem HCl 10 mg 10 mg TODAY@1200 ONCE IV 03/22/16 12:00 03/22/16 12:01 DC 03/22/16 12:15 10 MG Diltiazem HCl 125 mg/Dextrose 125 ml @ 0 mls/hr Q0M PRN IV 03/22/16 12:00 03/23/16 12:50 DC 03/23/16 08:39 15 MLS/HR Ceftriaxone Sodium 2000 mg/ Dextrose 70 ml @ 100 mls/hr DAILY@1200 IV 03/23/16 12:00 04/01/16 11:59 03/25/16 12:49 100 MLS/HR Dexamethasone Sodium Phosphate/ Syringe (Decadron Inj/ Syringe) 1.5 ml @ 1 mls/min Q6H IV 03/22/16 18:00 03/23/16 12:50 DC 03/23/16 12:38 1 MLS/MIN Heparin Sodium (Porcine) (Heparin Sq 5000 Unit/0.5ml) 5,000 unit Q12 SQ 03/22/16 21:00 03/24/16 07:39 DC 03/22/16 21:11 5,000 UNIT Acetaminophen (Tylenol Tab) 650 mg Q4H PRN PO 03/22/16 14:30 04/21/16 14:29 03/25/16 10:54 650 MG Aspirin (Ecotrin Tab) 81 mg DAILY PO 03/23/16 09:00 03/23/16 15:16 DC 03/23/16 08:28 81 MG Clopidogrel Bisulfate (plAVix TAB) 75 mg DAILY PO 03/23/16 09:00 03/25/16 13:26 DC 03/25/16 08:42 75 MG Fentanyl (Duragesic Patch) 25 mcg Q72H TD 03/25/16 09:00 04/08/16 08:59 03/25/16 08:43 25 MCG Fluticasone Propionate (Flonase Nasal [place]) 1-2 sprays daily DAILY BRITTANY 03/23/16 09:00 03/24/16 08:15 DC 03/24/16 07:58 1 SPRAYS Folic Acid (Folvite Tab) 400 mcg DAILY PO 03/23/16 09:00 04/22/16 08:59 03/26/16 08:15 400 MCG Gemfibrozil (Lopid Tab) 600 mg BID PO 03/22/16 21:00 04/21/16 20:59 03/26/16 08:16 600 MG Isosorbide Mononitrate (Imdur Ext Rel Tab) 120 mg QAM PO 03/23/16 09:00 04/22/16 08:59 03/26/16 08:15 120 MG Megestrol Acetate (Megace Tab) 40 mg QID PO 03/22/16 17:00 04/21/16 16:59 03/26/16 08:16 40 MG Metoprolol Succinate (Toprol Xl Tab) 100 mg DAILY PO 03/23/16 09:00 04/22/16 08:59 03/26/16 08:17 100 MG Enteral Nutritional Formula (Boost) 1 can DAILY PO 03/23/16 09:00 03/23/16 14:46 DC 03/23/16 08:27 1 CAN Miscellaneous (Fentanyl Patch Remove & Waste) 1 ea Q3D N/A 03/25/16 08:59 04/24/16 08:58 03/25/16 08:50 1 EA Miscellaneous Information (Check Fentanyl Patch Placement) 1 ea QS N/A 03/22/16 16:00 04/21/16 15:59 03/26/16 08:13 1 EA Isosorbide Mononitrate (Imdur Ext Rel Tab) 120 mg NOW ONCE PO 03/22/16 15:30 03/22/16 15:31 DC 03/22/16 15:28 120 MG Metoprolol Tartrate (Lopressor Iv) 5 mg STK-MED ONCE .ROUTE 03/22/16 15:11 03/22/16 15:13 DC 03/22/16 15:18 5 MG Diltiazem HCl (Dilacor Xr Cap) 180 mg QAM PO 03/23/16 12:45 04/22/16 12:44 03/26/16 08:14 180 MG Dexamethasone (Decadron Tab) 4 mg BID PO 03/24/16 09:00 04/23/16 08:59 03/26/16 08:14 4 MG Enteral Nutritional Formula (Boost) 1 can BIDM PO 03/23/16 16:45 04/22/16 16:44 03/26/16 08:14 1 CAN Fluticasone Propionate (Flonase Nasal [place]) 2 sprays DAILY BRITTANY 03/25/16 08:00 04/24/16 08:59 03/26/16 08:14 2 SPRAYS Albuterol/ Ipratropium (Duoneb) 3 ml QIDR INH 03/24/16 08:30 04/23/16 08:29 03/26/16 07:43 3 ML Furosemide (Lasix Tab) 20 mg QAM PO 03/25/16 15:00 04/24/16 14:59 03/26/16 08:15 20 MG Subjective He sees be doing well. He really offers no new complaints. He denies any pain Review of Systems: Constitutional: Negative for night sweats, or fever Eyes: Negative for event change of vision ENT: Negative for epistaxis, nasal discharge, sore throat, or deafness Cardiovascular: Negative for chest pain, palpitations, dizziness, diaphoresis Respiratory: Negative for new shortness of breath,hemoptysis, or purulent cough Gastrointestinal: Negative for diarrhea, hematemesis, melena, nausea, vomiting , or dyspepsia Integumentary (skin): Negative for rash or jaundice discoloration Genitourinary: Negative for urinary frequency, hematuria, or dysuria Neurological: Negative for weakness, seizure activity, headache, or dizziness Lymphatic/Hematologic: Negative for petechiae, bleeding or new adenopathy Musculoskeletal: Negative for new joint or back pain Allergic/Immunologic: Negative for unusual rash or pruritis. Vital Signs Vital Signs Past 12 Hours Date Time Temp Pulse Resp B/P Pulse Ox O2 Delivery O2 Flow Rate FiO2 03/26/16 07:53 74 16 97 Room Air 03/26/16 07:30 36.8 62 18 183/84 97 Room Air 03/26/16 01:03 36.6 67 20 159/84 96 Room Air 03/26/16 01:00 Room Air Physical Exam Constitutional: vitals are stable. Cachectic thin gentleman Eyes: Eyes are KENJI EOMI without conjuctival erythema or icterus. ENT: External examination was negative for masses. Neck: Negative for masses or palpable thyromegaly Respiratory: Lung sounds were generally clear bilaterally but with occasional rhonchi Cardiovascular: Heart was RRR without significant murmur, gallops aoe rubs Gastrointestinal: No palpable hepatic or splenomegaly. The abdomen was soft with normal bowel sounds. Lymphatic system: there was no palpable peripheral lymphadenopathy Musculoskeletal System: The musculoskeletal system seemed concordant with age. Skin: The skin was negative for jaundice. Neurologic exam: The exam was negative for any focal findings. Deep tendon reflexes were equal and symmetrical. Psychiatric exam: Was essentially negative with normal mood and effect. Extremities: Negative for edema Laboratory Last 24 Hours Test 03/26/16 07:15 White Blood Count 3.23 K/uL Red Blood Count 3.09 M/uL Hemoglobin 9.9 g/dL Hematocrit 28.5 % Mean Corpuscular Volume 92.2 fL Mean Corpuscular Hemoglobin 32.0 pg Mean Corpuscular Hemoglobin Concent 34.7 g/dl Platelet Count 55 K/uL Mean Platelet Volume 10.7 fL Neutrophils (%) (Auto) 86.1 % Lymphocytes (%) (Auto) 8.0 % Monocytes (%) (Auto) 4.0 % Eosinophils (%) (Auto) 0.0 % Basophils (%) (Auto) 0.0 % Neutrophils # (Auto) 2.78 K/uL Lymphocytes # (Auto) 0.26 K/uL Monocytes # (Auto) 0.13 K/uL Eosinophils # (Auto) 0.00 K/uL Basophils # (Auto) 0.00 K/uL RDW Standard Deviation 52.3 fL RDW Coefficient of Variation 15.8 % Immature Granulocyte % (Auto) 1.9 % Immature Granulocyte # (Auto) 0.06 K/uL Nucleated RBC Absolute Count (auto) 0.06 K/uL Nucleated Red Blood Cells % 2.0 % Ovalocytes 1+ Assessment & Plan He seems to be doing well. We will arrange for follow-up in our clinic in about one week. We have little to offer at at this time and we'll sign off. His platelet count 55,000 and hopefully that is a trend towards recovery post chemotherapy. There has been no overt bleeding. Please reconsult if necessary
[2016-03-26 09:26] LABS: BUN/CREATININE RATIO 20.5 (10-20); CALCIUM 9.6 mg/dl (8.5-10.1); CREATININE 0.81 mg/dl (0.60-1.40); POTASSIUM 4.4 mmol/L (3.5-5.1)
[2016-03-26] MEDS: CEFTRIAXONE SOD INJ 2,000 MG in DEXTROSE 5% 50ML 50 ML IV SCH (12:06)
[2016-03-26] MEDS: OXYCODONE HCL IR 5 MG TAB (IMMEDIATE RELEASE) PO PRN (13:29)
[2016-03-26] MEDS ORDERED: IPRASOL4 INH ×2 (13:51)
[2016-03-26] MEDS ORDERED: CIPR-255 PO (13:51)
[2016-03-26] MEDS ORDERED: NEBMAC (13:51)
[2016-03-26] MEDS ORDERED: DXM/4 PO (13:51)
[2016-03-26] MEDS ORDERED: OXYC1TAB3 PO (13:51)
--- NOTE | 2016-03-26 14:04 | Discharge Instructions ---
Discharge Instructions Admission Reason for Admission: Sepsis Discharge Discharge Diagnosis / Problem: UTI, rapid a fib, urinary retention Discharge Goals Goal(s): Improve function, Diagnostic testing, Therapeutic intervention Activity Recommendations Activity Limitations: per Instructions/Follow-up section Instructions / Follow-Up Instructions / Follow-Up You have been treated in the hospital for urinary retention, UTI and a fib please walk with a walker at all times at home You will need to be discharged with a catheter. Please follow up with Urology as scheduled on Mar 31 to see if you are able to urinate on your own For the UTI, Please make sure you finish the entire course of antibiotics You platelet count has been low. This will need to be rechecked. Please have a CBC drawn on 03/30. It is very important to follow up with your primary care physician and your oncologist within 1 week so they may review your results and hospital stay The following changes/additions have been made to your medication list: -Start cipro 500 mg 1 tab by mouth twice daily. Finish course -Decadron 4 mg tab. Take as directed -PLEASE STOP ASPIRIN -PLEASE STOP PLAVIX -Oxycodone 5 mg tab. Take 1 tab every 4 hours as needed for breakthrough pain -Duonebs may be used in the nebulizer machine every 6 hours and as close together as every 2 hours for difficulty breathing Return to the emergency department if you have any of the following symptoms: -Fever of 101F or greater -Persistent vomiting - Persistent diarrhea -Lethargy -Chest pain -Shortness of breath -Worsening pain -Inability to urinate in over 8 hours Current Hospital Diet Patient's current hospital diet: Regular Diet Discharge Diet Recommended Diet: Regular Diet Procedures Procedures Performed: MRI thoracic/lumbar spine Pending Studies Studies pending at discharge: no Medical Emergencies . Who to Call and When: Medical Emergencies: If at any time you feel your situation is an emergency, please call 911 immediately. . Non-Emergent Contact Non-Emergency issues call your: Primary Care Provider . . "Provider Documentation" section prepared by Penny Mathis. VTE Core Measure Inpt VTE Proph given/why not?: Unfractionated heparin SQ, T.E.D. Stockings, SCD 's
--- NOTE | 2016-03-26 14:37 | Discharge Summary ---
Discharge Summary Admission Date: Mar 22, 2016 at 14:30 Discharge Date: Mar 26, 2016 Discharge Disposition: Home Principal Diagnosis: urinary retention, UTI, rapid A. fib Problems/Secondary Diagnoses: A. fib Coronary artery disease COPD Lung cancer Prostate cancer Epidural hematoma Pancytopenia History of AAA Immunizations: Have You Had Influenza Vaccine: Yes Influenza Vaccine Date: Nov 28, 2013 History of Tetanus Vaccine?: unk Tetanus Immunization Date: Oct 20, 2007 History of Pneumococcal: Yes Pneumococcal Date: Oct 19, 2008 History of Hepatitis B Vaccine: No Procedures: Thoracic spine MRI 1. Complete replacement of the T2 vertebral body and posterior elements with a metastatic lesion. The soft tissue component demonstrates epidural extension surrounding the spinal canal which results in moderate central canal narrowing. This abuts but does not significant compression of cord. 2. There is also an abnormal fluid signal within the epidural space posterior to the T2-T5 vertebral bodies. This measures up to 4 mm in thickness. This abuts but does not result in deformity of the thoracic spinal cord. This is concerning for an epidural hematoma or cystic metastatic extension. An epidural abscess could also have a similar appearance but is considered less likely given the presentation of findings. 3. A 1 cm lesion along the inferior endplate of T12 which also likely represents a metastatic deposit. Mild anterior wedge-shaped compression deformity is likely pathologic. This does not appear to be acute. 4. The thoracic spinal cord demonstrates a normal signal intensity. 5. Metastatic right retroperitoneal nodules are again noted. 6. Trace bilateral pleural effusions. 7. These findings were discussed with Dr. Cabrera at 11:50 PM on 03/22/2016. Electronically signed by: Paolo Hurtado M.D. 03/23/2016 12:01 AM Lumbar spine MRI 1. Overall, no significant change within the lumbar spine compared to the prior study. 2. The metastatic lesions within the posterior elements of L4 and L5 remain unchanged. 3. No significant central canal narrowing. 4. No acute fractures within the lumbar spine. 5. Please refer to the same day thoracic spine MRI for further evaluation of the thoracic spine findings. Consultations: Oncology Medication Reconciliation New Medications: Ciprofloxacin Hcl (Cipro) 500 Mg Tab 500 MG PO BID for 6 Days Dexamethasone (Decadron) 4 Mg Tab 4 MG PO UD, #5 TAB take 1 tablet twice daily x 1 day then 1/2 tablet twice daily x 2 days then take 1/2 tablet once daily x 2 days Nebulizer Machine (Home Use) (Nebulizer Machine (Home Use) ) Mis 1 EA N/A UD, #1 Oxycodone Immediate Rel Tab (Roxicodone Ir) 5 Mg Tab 1 TAB PO Q4H PRN for Pain, #20 TAB Ipratropium-Albuterol (Duoneb) 3 Ml Nebu 3 ML INH QIDR for 30 Days Ipratropium-Albuterol (Duoneb) 3 Ml Nebu 3 ML INH Q2H PRN for SOB/WHEEZING for 30 Days Continued Medications: Acetaminophen (Tylenol) 500 Mg Tab 500 MG PO TID PRN for Pain, TAB Diltiazem HCl (Diltiazem HCl ER) 180 Mg Capcr 180 MG PO QAM for 30 Days Diphenhydramine Hcl (Benadryl) 25 Mg Cap 50 MG PO HS PRN for Pain, CAP Ergocalciferol (Vitamin D2) 400 Unit Tab 1 TAB PO DAILY Fentanyl (Fentanyl) 25 Mcg Tdsy Fish Oil ([place]-3) 1 Ea Cap 1 CAP PO DAILY, CAP Fluticasone Propionate (Nasal) (Flonase Allergy Relief) 50 Mcg/Act Spr 1-2 SPRAYS BRITTANY DAILY Folic Acid (Folvite) 400 Mcg Tab 400 MCG PO DAILY, TAB Gemfibrozil (Lopid) 600 Mg Tab 600 MG PO BID Hydrocodon/Acetaminophen 5MG/300MG (Vicodin (5MG/300MG)) Unknown Strength Tab 1 TAB PO Q4H PRN for Pain, TAB Isosorbide Mononitrate Ext Rel (Imdur Ext Rel) 120 Mg Ertab 120 MG PO QAM, TAB Megestrol Acetate (Megace) 40 Mg Tab 40 MG PO QID, TAB Metoprolol Succinate (Metoprolol Succinate ER) 50 Mg Tabcr 100 MG PO DAILY for 30 Days Nutritional Supplements (Boost) 1 Liq Liq 1 CAN PO DAILY Vitamin E (E-1000) 1,000 Unit Cap 1000 UNITS PO DAILY Discontinued Medications: Aspirin (Aspirin Ec) 81 Mg Tab 81 MG PO DAILY Clopidogrel (Plavix) 75 Mg Tab 75 MG PO DAILY DO NOT TAKE IF THERE IS BLOOD IN YOUR URINE Vancomycin Hcl (Vancocin Hcl) 125 Mg Cap 125 MG PO UD Referrals At Discharge Follow up Referrals: Physician Referral - Within 1 Week with Drew Dominguez M.D. Urologist Referral - Within 1-2 Weeks with Wojciech Augustin M.D. Discharge Exam Feeling well today. Breathing is baseline. Mild nonproductive cough. Unchanged. Mild dyspnea on exertion. Also unchanged. Denies any fever or chills. No heart palpitations or chest pain. Denies any dizziness. Back pain is mild to moderate depending on position Review of Systems: Constitutional: No fever Respiratory: No sputum Cardiovascular: No chest pain Abdomen: No nausea Physical Exam: General Appearance: + mild distress (mild respiratory distress), + cachetic Neck: no JVD Respiratory/Chest: + pertinent finding (mild diffuse wheeze. Mild crackles at the bases bilaterally.) Cardiovascular: + irregularly irregular Abdomen / GI: normal bowel sounds, non tender, soft Extremities: no calf tenderness, no pedal edema Neurologic/Psychiatric: no motor/sensory deficits, oriented x 3 Skin: warm/dry, + pertinent finding (petechiae unchanged) Hospital Course 76-year-old male presented to the ED with a main complaint of urinary retention for 2 days. The patient does have a history of a urethral stricture that was noted in his outpatient records earlier this month. Also found to be in rapid A. fib with a rate in the 130s. Urinalysis consistent with a UTI A. fib with RVR-likely secondary to sepsis. UTI source. Converted to sinus rhythm on 03/23 -was on diltiazem drip. This has been discontinued -Continue home dose of diltiazem ER 180 mg daily. -Continue metoprolol ER 100 mg twice daily -Too much of a fall risk for anticoagulation (also Thrombocytopenia) Pancytopenia secondary to chemo-petechiae on exam -DVT prophylaxis was discontinued -ASA and Plavix d/c'ed -plt stable at time of d/c 55,000 UTI in the setting of urinary retention, sepsis-stable- -Rocephin 2 g IV daily-->Cipro 500 mg po BID for an additional 6 days (total 10 day course of abx) -Urology consulted. Will be discharged with a Maxwell and urologic follow-up in 2 -3 weeks -Unable to obtain a good urine culture-tx based on previous cx-Serratia, Citrobacter Urinary retention-? neurogenic bladder vs urethral stricture -MRI of the spine reviewed. No signs of cord compression. Likely urethral stricture culprit -DC Decadron IV COPD-breathing baseline -nebs while inpt -sounded much better after decadron. Transitioned to po-->will taper outpt History of coronary artery disease. No anginal symptoms today. Had a mild elevation in his troponin, that is now trending down. This is likely secondary to A. fib with RVR/demand ischemia -Continue Imdur extended release 120 mg daily Metastatic small cell lung CA-mets to brain, thoracic, lumbar spine, retroperitoneum-recent CT/MRI shows disease progression -progressive disease at T2 and in the retroperitoneum -Fentanyl 25 mcg patch -added oxy IR 5 mg po q 4 hr prn Rx given -Wishes to continue chemo/radiation, but it is currently on hold d/t pancytopenia -Well known to Dr. Blandon's svc. Outpt f/u ? Fluid collection in the epidural space per MRI of the T2 -likely hematoma -ASA and plavix discontinued -repeat MRI done on day of d/c-->stable C. diff colitis-resolving. No diarrhea -f/u ID outpt DVT prophylaxis -AC contraindicated -TEDS, SCDs CODE STATUS -LEVEL V DO NO RESUSCITATE DISPO -d/c home Total Time Spent: Greater than 30 minutes This includes examination of the patient, discharge planning, medication reconciliation, and communication with other providers. Discharge Instructions Please refer to the electronic Patient Visit Report (Discharge Instructions) for additional information. Follow-Up urology next week PCP 1 week Onc within 2 weeks Additional Copies To Joe Blandon D.O.; Drew Dominguez M.D.; Wojciech Augustin M.D.
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
--- NOTE | 2016-03-26 18:14 | DIAGNOSTIC IMAGING REPORT ---
MRI OF THE THORACIC SPINE COMBO CLINICAL HISTORY: History of small cell lung cancer. Thoracic spinal metastatic disease. COMPARISON STUDY: MRI of the thoracic spine dated 03/22/16. Chest CT dated 02/24/2016. TECHNIQUE: MRI of the thoracic spine is performed using various T1 and T2-weighted sequences in the axial and sagittal planes. Contrast-enhanced images were acquired following the IV administration of 6 cc of Gadavist. The examination is degraded by motion artifact. FINDINGS: A mild compression deformity of T12 is unchanged. Vertebral body height is otherwise maintained throughout the thoracic spine. Alignment is preserved. Hyperkyphosis is noted. There is complete marrow replacement identified involving the body of T2 which also involves the posterior elements. There is epidural extension of tumor at this level surrounding the thecal sac, which is greatest posteriorly. This causes wxwt-up-aerydgvd central canal stenosis but does not compressed the thoracic cord end is unchanged from study performed several days ago. A second lesion versus Schmorl's node is noted in the body of T12. No destructive bony lesions are identified at the remaining thoracic levels. The spinous processes appear intact. Degenerative disc desiccation and loss of height is seen throughout. No large disc herniation is present. The anterior epidural fluid questioned on the recent thoracic spinal MRI at the levels of T2-T5 is not seen on today's examination. The thoracic spinal cord is normal in morphology and signal intensity. The conus medullaris terminates at the level of L1. No abnormal cord enhancement is seen on the postcontrast images. The paraspinous soft tissues are grossly unremarkable. There are trace pleural effusions. Scarring/fibrosis is again noted in the left lower lung. The lung parenchyma is not well evaluated by MRI. There are numerous bilateral renal cysts. The left kidney is markedly atrophic as compared to the right. Retroperitoneal metastases are unchanged. IMPRESSION: 1. No significant change in metastatic disease involving T2 with epidural extension as detailed above when compared to the 03/22/2016 examination. 2. No cord compression is identified. 3. A second lesion versus a Schmorl's node in the body of T12 is also unchanged. 4. The epidural fluid questioned on the 03/22/2016 examination is no longer identified. No epidural fluid collection is seen on today's examination. Electronically signed by: Raman Loco M.D. 03/26/2016 6:13 PM Dictated Date/Time: 03/26/2016 5:56 PM
[2016-03-27] VITALS (11 sets, daily range): BP systolic 102–152; BP diastolic 69–86; PULSE 60–128; TEMP 36.2–36.9; O2SAT 96–100
[2016-03-27 06:28] LABS: HEMATOCRIT 31.3 % (42-52); MEAN CELL VOLUME 92.6 fL (80-100); MEAN CORPUSCULAR HGB CONC 34.5 g/dl (32-36); RED BLOOD COUNT 3.38 M/uL (4.7-6.1)
[2016-03-27 06:30] LABS: BASO % 0.2 %; BASO ABS # 0.01 K/uL (0-0.2); COMPLETE YES; IG% 1.3 %; LYMPH % 7.3 %; LYMPH ABS # 0.33 K/uL (1.2-3.4); MEAN PLATELET VOLUME 11.1 fL (7.4-10.4); MONO % 6.9 %; NEUT % 84.3 %; PLATELET COUNT 81 K/uL (130-400)
[2016-03-27] MEDS: ALBUT/IPRATROP 3MG/0.5MG NEB 3 ML VIAL INH SCH ×4 (07:06→19:14)
[2016-03-27] MEDS: GEMFIBROZIL 600 MG TAB PO SCH ×2 (09:06→19:28)
[2016-03-27] MEDS: ISOSORBIDE MONONITRATE 60 MG TABCR PO SCH (09:07)
[2016-03-27] MEDS: FoLIC ACID TAB 400 MCG TAB PO SCH (09:07)
[2016-03-27] MEDS: METOPROLOL SUCC 50MG EXT REL TAB PO SCH (09:07)
[2016-03-27] MEDS: FUROSEMIDE 20 MG TAB PO SCH (09:08)
[2016-03-27] MEDS: DEXAMETHASONE 4 MG TAB PO SCH ×2 (09:08→19:28)
[2016-03-27] MEDS: MEGESTROL ACETATE 40 MG TAB PO SCH ×4 (09:08→19:28)
[2016-03-27] MEDS: DILTIAZEM HCL 180 MG ER CAP PO SCH (09:08)
[2016-03-27] MEDS: BOOST VANILLA PO SCH ×4 (09:08→17:00)
[2016-03-27] MEDS: FLUTICASONE PROPIONATE NA SPR 16 GM BTL NAE SCH (09:09)
[2016-03-27] MEDS: CHECK FENTANYL PATCH PLACEMENT SCH ×2 (09:11→15:48)
[2016-03-27] MEDS: FENTANYL 25 MCG/HR TDSY TD SCH (09:30)
[2016-03-27] MEDS: CEFTRIAXONE SOD INJ 2,000 MG in DEXTROSE 5% 50ML 50 ML IV SCH (12:39)
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
[2016-03-27] MEDS: OXYCODONE HCL IR 5 MG TAB (IMMEDIATE RELEASE) PO PRN (13:34)
[2016-03-28] VITALS (12 sets, daily range): BP systolic 124–156; BP diastolic 64–76; PULSE 54–72; TEMP 36.3–36.9; O2SAT 92–97
[2016-03-28] MEDS: CHECK FENTANYL PATCH PLACEMENT SCH ×3 (00:04→16:00)
[2016-03-28] MEDS: ALBUT/IPRATROP 3MG/0.5MG NEB 3 ML VIAL INH PRN ×2 (01:22→21:44)
[2016-03-28 05:43] LABS: HEMATOCRIT 29.9 % (42-52); MEAN CELL VOLUME 93.1 fL (80-100); MEAN CORPUSCULAR HEMOGLOBIN 32.4 pg (25-34); MEAN CORPUSCULAR HGB CONC 34.8 g/dl (32-36); RED BLOOD COUNT 3.21 M/uL (4.7-6.1); WHITE BLOOD COUNT 4.74 K/uL (4.8-10.8)
[2016-03-28 06:13] LABS: COMPLETE YES; IG% 2.1 %; LYMPH % 6.1 %; LYMPH ABS # 0.29 K/uL (1.2-3.4); MEAN PLATELET VOLUME 11.2 fL (7.4-10.4); MONO % 7.2 %; NEUT % 84.6 %; PLATELET COUNT 93 K/uL (130-400)
[2016-03-28 06:20] LABS: LARGE PLATELETS 1+; OVALOCYTES 2+; POLYCHROMASIA 1+
[2016-03-28 06:23] LABS: BUN/CREATININE RATIO 29.5 (10-20); CALCIUM 8.9 mg/dl (8.5-10.1); CREATININE 0.95 mg/dl (0.60-1.40); MAGNESIUM 2.2 mg/dl (1.8-2.4); POTASSIUM 5.1 mmol/L (3.5-5.1)
[2016-03-28] MEDS: ALBUT/IPRATROP 3MG/0.5MG NEB 3 ML VIAL INH SCH ×4 (07:27→19:10)
[2016-03-28] MEDS ORDERED: ASPIRIN 81 MG ECTAB PO SCH (08:00)
[2016-03-28] MEDS: GEMFIBROZIL 600 MG TAB PO SCH ×2 (08:57→19:40)
[2016-03-28] MEDS: FoLIC ACID TAB 400 MCG TAB PO SCH (08:57)
[2016-03-28] MEDS: CLOPIDOGREL BISULFATE 75 MG TAB PO SCH (08:58)
[2016-03-28] MEDS: FUROSEMIDE 20 MG TAB PO SCH (08:58)
[2016-03-28] MEDS: METOPROLOL SUCC 50MG EXT REL TAB PO SCH (08:58)
[2016-03-28] MEDS: ISOSORBIDE MONONITRATE 60 MG TABCR PO SCH (08:58)
[2016-03-28] MEDS: MEGESTROL ACETATE 40 MG TAB PO SCH ×4 (08:58→19:40)
[2016-03-28] MEDS: DILTIAZEM HCL 180 MG ER CAP PO SCH (08:59)
[2016-03-28] MEDS: BOOST VANILLA PO SCH ×4 (08:59→17:23)
[2016-03-28] MEDS: FLUTICASONE PROPIONATE NA SPR 16 GM BTL NAE SCH (08:59)
[2016-03-28] MEDS: DEXAMETHASONE 4 MG TAB PO SCH ×2 (08:59→19:40)
[2016-03-28] MEDS: CEFTRIAXONE SOD INJ 2,000 MG in DEXTROSE 5% 50ML 50 ML IV SCH (12:08)
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
[2016-03-28] MEDS: ONDANSETRON INJ 2 MG/ML 2 ML VIAL IV PRN (20:21)
[2016-03-28] MEDS ORDERED: NURSING VERBAL MED ORDER ONE (21:00)
[2016-03-28] MEDS: ALUMINUM/MAGNESIUM SUSP 30 ML UDC PO PRN (21:06)
[2016-03-29] VITALS (10 sets, daily range): BP systolic 128–169; BP diastolic 68–76; PULSE 58–93; TEMP 36.5–36.9; O2SAT 93–100
[2016-03-29] MEDS: CHECK FENTANYL PATCH PLACEMENT SCH ×4 (00:14→23:01)
[2016-03-29] MEDS: ALUMINUM/MAGNESIUM SUSP 30 ML UDC PO PRN ×2 (02:58→12:22)
[2016-03-29] MEDS ORDERED: NURSING VERBAL MED ORDER ONE (04:30)
[2016-03-29] MEDS ORDERED: PANTOprazole SOD 40 MG TAB PO STA (04:32)
[2016-03-29] MEDS ORDERED: CALCIUM CARBONATE 500 MG CHEWABLE PO PRN (04:45)
[2016-03-29] MEDS: ALBUT/IPRATROP 3MG/0.5MG NEB 3 ML VIAL INH SCH ×4 (07:41→19:06)
[2016-03-29] MEDS: DEXAMETHASONE 4 MG TAB PO SCH ×2 (08:24→19:28)
[2016-03-29] MEDS: FoLIC ACID TAB 400 MCG TAB PO SCH (08:24)
[2016-03-29] MEDS: GEMFIBROZIL 600 MG TAB PO SCH ×2 (08:24→19:27)
[2016-03-29] MEDS: METOPROLOL SUCC 50MG EXT REL TAB PO SCH (08:24)
[2016-03-29] MEDS: CLOPIDOGREL BISULFATE 75 MG TAB PO SCH (08:24)
[2016-03-29] MEDS: FUROSEMIDE 20 MG TAB PO SCH (08:25)
[2016-03-29] MEDS: DILTIAZEM HCL 180 MG ER CAP PO SCH (08:25)
[2016-03-29] MEDS: MEGESTROL ACETATE 40 MG TAB PO SCH ×4 (08:25→19:27)
[2016-03-29] MEDS: ISOSORBIDE MONONITRATE 60 MG TABCR PO SCH (08:25)
[2016-03-29] MEDS: BOOST VANILLA PO SCH ×4 (08:26→17:24)
[2016-03-29] MEDS: FLUTICASONE PROPIONATE NA SPR 16 GM BTL NAE SCH (08:27)
[2016-03-29] MEDS: CEFTRIAXONE SOD INJ 2,000 MG in DEXTROSE 5% 50ML 50 ML IV SCH (12:16)
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
[2016-03-29] MEDS ORDERED: POLYETHYLENE (MIRALAX) 17 GM PACK PO ONE (14:00)
[2016-03-29] MEDS: ACETAMINOPHEN 325 MG TAB PO PRN (21:02)
[2016-03-30] VITALS (12 sets, daily range): BP systolic 104–130; BP diastolic 72–87; PULSE 64–118; TEMP 36.4–36.8; O2SAT 93–99
[2016-03-30] MEDS: ALBUT/IPRATROP 3MG/0.5MG NEB 3 ML VIAL INH SCH ×5 (00:14→20:19)
[2016-03-30] MEDS: CHECK FENTANYL PATCH PLACEMENT SCH ×2 (08:01→16:55)
[2016-03-30] MEDS: DEXAMETHASONE 4 MG TAB PO SCH (08:04)
[2016-03-30] MEDS: FLUTICASONE PROPIONATE NA SPR 16 GM BTL NAE SCH (08:04)
[2016-03-30] MEDS: FoLIC ACID TAB 400 MCG TAB PO SCH (08:04)
[2016-03-30] MEDS: BOOST VANILLA PO SCH ×4 (08:04→17:00)
[2016-03-30] MEDS: DILTIAZEM HCL 180 MG ER CAP PO SCH (08:04)
[2016-03-30] MEDS: FUROSEMIDE 20 MG TAB PO SCH (08:05)
[2016-03-30] MEDS: MEGESTROL ACETATE 40 MG TAB PO SCH ×4 (08:05→20:36)
[2016-03-30] MEDS: GEMFIBROZIL 600 MG TAB PO SCH ×2 (08:05→20:36)
[2016-03-30] MEDS: METOPROLOL SUCC 50MG EXT REL TAB PO SCH (08:05)
[2016-03-30] MEDS: CLOPIDOGREL BISULFATE 75 MG TAB PO SCH (08:05)
[2016-03-30] MEDS: ISOSORBIDE MONONITRATE 60 MG TABCR PO SCH (08:05)
[2016-03-30] MEDS: PANTOprazole SOD 40 MG TAB PO SCH (08:05)
[2016-03-30] MEDS: FENTANYL 25 MCG/HR TDSY TD SCH (08:59)
[2016-03-30] MEDS ORDERED: FENTANYL PATCH REMOVE & WASTE SCH (09:00)
[2016-03-30] MEDS: OXYCODONE HCL IR 5 MG TAB (IMMEDIATE RELEASE) PO PRN (14:29)
--- NOTE | 2016-03-30 15:44 | Hospitalist Progress Note ---
Hospitalist Progress Note Date of Service Mar 30, 2016. (Meenakshi Deleon ., KAMINIC) Subjective Pt evaluation today including: conversation w/ patient, physical exam, chart review, lab review, review of studies, review of inpatient medication list Voiding: villafana catheter in place (draining yellow urine ) Patient states he is feeling well. +SOB, no O2 supplement on--> checked O2 saturation at 98% while interviewing. Patient denies any fever, chills, sweats, lightheadedness, dizziness, vision changes, CP, palpitations, edema, wheezing, cough, abdominal pain, nausea, vomiting, diarrhea, melena, numbness/tingling, weakness, muscle/joint pain, anxiety/depression, active bleeding, or new skin discoloration/changes. (Meenakshi Deleon ., KAMINIC) Medications Current Inpatient Medications Medications (Trade) Dose Ordered Sig/Anderson Route Start Time Stop Time Status Last Admin Dose Admin Acetaminophen (Tylenol Tab) 650 mg Q4H PRN PO 03/22/16 14:30 04/21/16 14:29 03/29/16 21:02 650 MG Ondansetron HCl (Zofran Inj) 4 mg Q6H PRN IV 03/22/16 14:30 04/21/16 14:29 03/28/16 20:21 4 MG Nitroglycerin (Nitrostat Tab) 0.4 mg UD PRN SL 03/22/16 14:30 04/21/16 14:29 Folic Acid (Folvite Tab) 400 mcg DAILY PO 03/23/16 09:00 04/22/16 08:59 03/30/16 08:04 400 MCG Gemfibrozil (Lopid Tab) 600 mg BID PO 03/22/16 21:00 04/21/16 20:59 03/30/16 08:05 600 MG Isosorbide Mononitrate (Imdur Ext Rel Tab) 120 mg QAM PO 03/23/16 09:00 04/22/16 08:59 03/30/16 08:05 120 MG Megestrol Acetate (Megace Tab) 40 mg QID PO 03/22/16 17:00 04/21/16 16:59 03/30/16 12:53 40 MG Metoprolol Succinate (Toprol Xl Tab) 100 mg DAILY PO 03/23/16 09:00 04/22/16 08:59 03/30/16 08:05 100 MG Miscellaneous Information (Check Fentanyl Patch Placement) 1 ea QS N/A 03/22/16 16:00 04/21/16 15:59 03/30/16 08:01 1 EA Diltiazem HCl (Dilacor Xr Cap) 180 mg QAM PO 03/23/16 12:45 04/22/16 12:44 03/30/16 08:04 180 MG Dexamethasone (Decadron Tab) 4 mg BID PO 03/24/16 09:00 04/23/16 08:59 03/30/16 08:04 4 MG Enteral Nutritional Formula (Boost) 1 can BIDM PO 03/23/16 16:45 04/22/16 16:44 03/30/16 08:04 1 CAN Fluticasone Propionate (Flonase Nasal [place]) 2 sprays DAILY BRITTANY 03/25/16 08:00 04/24/16 08:59 03/30/16 08:04 2 SPRAYS Albuterol/ Ipratropium (Duoneb) 3 ml QIDR INH 03/24/16 08:30 04/23/16 08:29 03/30/16 13:26 3 ML Albuterol/ Ipratropium (Duoneb) 3 ml Q2H PRN INH 03/24/16 08:30 04/23/16 08:29 03/28/16 21:44 3 ML Furosemide (Lasix Tab) 20 mg QAM PO 03/25/16 15:00 04/24/16 14:59 03/30/16 08:05 20 MG Oxycodone HCl (Roxicodone Immediate Rel Tab) 5 mg Q4H PRN PO 03/25/16 14:15 04/08/16 14:14 03/30/16 14:29 5 MG Fentanyl (Duragesic Patch) 25 mcg Q3D@0900 TD 03/27/16 09:00 04/10/16 08:59 03/30/16 08:59 25 MCG Miscellaneous (Fentanyl Patch Remove & Waste) 1 ea Q3D N/A 03/30/16 09:00 04/29/16 08:59 03/30/16 09:03 1 EA Clopidogrel Bisulfate (plAVix TAB) 75 mg QAM PO 03/28/16 08:00 04/27/16 07:59 03/30/16 08:05 75 MG Al Hydroxide/Mg Hydroxide (Maalox Susp) 30 ml Q6H PRN PO 03/28/16 21:15 04/27/16 21:14 03/29/16 12:22 30 ML Pantoprazole Sodium (Protonix Tab) 40 mg QAM PO 03/30/16 08:00 04/29/16 07:59 03/30/16 08:05 40 MG Calcium Carbonate (Tums Chew Tab) 1-2 TABS Q2H PRN PO 03/29/16 04:45 04/28/16 04:44 03/29/16 04:40 1,000 MG (Meenakshi Deleon, PA-C) Objective Vital Signs Date Time Temp Pulse Resp B/P Pulse Ox O2 Delivery O2 Flow Rate FiO2 03/30/16 14:43 36.6 95 18 110/73 96 03/30/16 14:27 91 20 128/74 94 Nasal Cannula 2.0 03/30/16 13:26 74 18 94 Nasal Cannula 2.0 03/30/16 11:49 36.5 104 20 130/87 96 2.0 03/30/16 11:18 Nasal Cannula 2.0 03/30/16 10:34 77 18 93 Room Air 03/30/16 07:23 36.8 89 16 116/77 99 Room Air 03/30/16 07:08 92 18 94 Room Air 03/30/16 05:13 36.8 102 20 115/77 97 Room Air 03/30/16 00:49 80 03/30/16 00:14 118 18 96 Room Air 03/29/16 23:59 Room Air 03/29/16 23:10 36.5 58 20 143/76 97 Room Air 03/29/16 19:26 36.6 60 18 128/73 98 Room Air 03/29/16 19:10 63 16 97 Room Air 03/29/16 16:00 Room Air (Meenakshi Deleon, PA-C) Physical Exam General Appearance: no apparent distress, + thin Eyes: normal inspection, PERRL ENT: hearing grossly normal Neck: supple Respiratory/Chest: lungs clear, no respiratory distress, no accessory muscle use, + decreased breath sounds Cardiovascular: regular rate, rhythm Abdomen: normal bowel sounds, non tender, soft Extremities: no pedal edema, no calf tenderness Neurologic/Psychiatric: alert, normal mood/affect Skin: normal color, warm/dry, no rash (Meenakshi Deleon ., REMI) Assessment and Plan 76-year-old male presented to the ED with a main complaint of urinary retention for 2 days prior to eval in ER. Hx urethral stricture that was noted in his outpatient records earlier this month. Also found to be in rapid A. fib with a rate in the 130s in the ER. Urinalysis consistent with a UTI A. fib with RVR- likely secondary to sepsis. UTI source. Converted to sinus rhythm on 03/23- flipped back to A fib on 03/27 -Continue Diltiazem ER 180 mg daily. -Continue Metoprolol ER 100 mg twice daily -Too much of a fall risk for anticoagulation (also thrombocytopenia) Pancytopenia secondary to chemo-petechiae on exam-plt improved today 81,000 - DVT prophylaxis was discontinued - Resume Plavix, hold ASA UTI in the setting of urinary retention, sepsis, resolved: -Treated with Rocephin 2 g IV daily x1 week ; Unable to obtain a good urine culture-->tx based on previous cx- Serratia, Citrobacter -Urology consulted. Will be discharged with a Villafana and urologic follow-up scheduled for 03/31 for void trial--> will do inpatient since still here Urinary retention-? neurogenic bladder vs urethral stricture - MRI of the spine reviewed. No signs of cord compression. Likely urethral stricture culprit COPD, with hx of small cell lung cancer: -Minor exacerbation Decadron 4 mg po BID (will need taper after discharge), plus nebs, pt states uses oxygen and nebs at home History of coronary artery disease. No anginal symptoms today. Had a mild elevation in his troponin, that is now trending down. This is likely secondary to A. 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 Blandon's svc. Outpt f/u in 1 week ? Fluid collection in the epidural space per MRI of the T2-likely hematoma. No longer seen on MRI 03/26 -Resume Plavix hold ASA -monitor for increased pain C. diff colitis-resolved DVT prophylaxis -AC contraindicated -TEDS, SCDs -PLEASE ENCOURAGE AMBULATION- high risk for DVT w/ CA CODE STATUS -LEVEL V DO NO RESUSCITATE DISPO - Stable for discharge. Waiting for [facility] [place] approval. (Meenakshi Deleon, REMI) Reviewed: Pt Seen/Exam by MORELIA Jackson Notes, Labs, RAD, EKG (Amanda Guaman MD) History Physician Bill Of Lading Clerk Supervision Note: I interviewed and examined the patient. Discussed with JULIETA Arenas and agree with findings and plan as documented in the note. Any exceptions or clarifications are listed here: Pt has c/o his chronic daily chest pain and had some nausea a little bit ago resolved with Zofran. Feels SOB. Low appetite. Says he doesn't want to do any more XRT as it is too painful. Vitals reviewed Cachectic appearing, chronically ill RRR no audible mgr Diffuse rhonchi and crackles at bases, wheezing diffusely Abd +BS, soft, min TTP LLQ w/o guarding or rebound Ext with sarcopenia and no ttp of calves, no edema A/P: 76 yo male with metastatic lung CA here with UTI, sepsis from urinary retention secondary to urethral stricture requiring Villafana catheter placement. Completed abx course, voiding trial tomorrow and reconsult Urology for this as they were to see in office anyway. Pain control and symptomatic control of cancer, consider Palliative Care Consult in near future Taper dexamethasone down to 4mg daily today for COPD, wheeze Add on Zantac for chronic CP which sounds like GERD especially in light of being on steroids, continue PPI Expect d/c to SNF tomorrow Documented By: Amanda Guaman (Amanda Guaman MD)
[2016-03-30] MEDS: ONDANSETRON INJ 2 MG/ML 2 ML VIAL IV PRN (15:55)
[2016-03-30] MEDS ORDERED: RANITIDINE HCL 150 MG TAB PO ONE (17:00)
[2016-03-30] MEDS ORDERED: VANCOMYCIN HCL 125 MG/2.5ML SOLN PO SCH (18:00)
[2016-03-30] MEDS ORDERED: RASPBERRY SYRUP 5 ML UDP PO SCH (18:00)
[2016-03-30] MEDS: RANITIDINE HCL 150 MG TAB PO SCH (20:35)
[2016-03-31] VITALS (9 sets, daily range): BP systolic 124–151; BP diastolic 73–82; PULSE 51–66; TEMP 36.4–36.5; O2SAT 94–97
[2016-03-31] MEDS: CHECK FENTANYL PATCH PLACEMENT SCH ×2 (00:59→08:00)
[2016-03-31 06:16] LABS: HEMATOCRIT 33.4 % (42-52); MEAN CELL VOLUME 92.8 fL (80-100); MEAN CORPUSCULAR HEMOGLOBIN 32.2 pg (25-34); MEAN CORPUSCULAR HGB CONC 34.7 g/dl (32-36); MEAN PLATELET VOLUME 10.2 fL (7.4-10.4); PLATELET COUNT 220 K/uL (130-400); WHITE BLOOD COUNT 3.55 K/uL (4.8-10.8)
[2016-03-31 06:41] LABS: BUN/CREATININE RATIO 37.1 (10-20); CALCIUM 9.1 mg/dl (8.5-10.1); CREATININE 1.1 mg/dl (0.60-1.40); MAGNESIUM 2.6 mg/dl (1.8-2.4); POTASSIUM 4.9 mmol/L (3.5-5.1)
[2016-03-31] MEDS: ALBUT/IPRATROP 3MG/0.5MG NEB 3 ML VIAL INH SCH ×2 (07:16→11:34)
[2016-03-31] MEDS: PANTOprazole SOD 40 MG TAB PO SCH (08:00)
[2016-03-31] MEDS ORDERED: DEXAMETHASONE 4 MG TAB PO SCH (08:00)
[2016-03-31] MEDS: CLOPIDOGREL BISULFATE 75 MG TAB PO SCH (08:00)
[2016-03-31] MEDS: BOOST VANILLA PO SCH ×2 (08:00)
[2016-03-31] MEDS: FLUTICASONE PROPIONATE NA SPR 16 GM BTL NAE SCH (08:00)
[2016-03-31] MEDS: RANITIDINE HCL 150 MG TAB PO SCH (08:00)
[2016-03-31] MEDS: METOPROLOL SUCC 50MG EXT REL TAB PO SCH (08:00)
[2016-03-31] MEDS: GEMFIBROZIL 600 MG TAB PO SCH (08:00)
[2016-03-31] MEDS: FoLIC ACID TAB 400 MCG TAB PO SCH (08:00)
[2016-03-31] MEDS: MEGESTROL ACETATE 40 MG TAB PO SCH ×2 (08:00→12:13)
[2016-03-31] MEDS: ISOSORBIDE MONONITRATE 60 MG TABCR PO SCH (08:00)
[2016-03-31] MEDS: FUROSEMIDE 20 MG TAB PO SCH (08:00)
[2016-03-31] MEDS: DILTIAZEM HCL 180 MG ER CAP PO SCH (08:00)
[2016-03-31] MEDS ORDERED: ZNT150 PO (11:58)
[2016-03-31] MEDS ORDERED: LSX20 PO (12:13)
[2016-03-31] MEDS ORDERED: Enteral Nutrition Formula PO (12:13)
[2016-03-31] MEDS ORDERED: PRT40 PO (12:13)
--- NOTE | 2016-03-31 12:35 | Discharge Instructions ---
Discharge Instructions Admission Reason for Admission: Sepsis (Meenakshi Deleon PA-C) Discharge Discharge Diagnosis / Problem: UTI; urinary retention; small cell lung cancer; c. diff (Meenakshi Deleon PA-C) Discharge Goals Goal(s): Decrease discomfort, Improve function, Diagnostic testing, Therapeutic intervention, Prevent Disease Progression (Meenakshi Deleon PA-C) Activity Recommendations Activity Level: Assistance Required Therapies: Physical Therapy, Occupational Therapy . (Meenakshi Deleon PA-C) Additional Information Patient informed of condition: Yes Advance Directives: No DNR: Yes Level of Care: Skilled Communicable Disease: No Prognosis: Stable Oxygen at (LPM): 2L [place] Catheter: Yes (Meenakshi Deleon PA-C) Instructions / Follow-Up Instructions / Follow-Up New/changed medications: 1. Dexamethasone eliana 2. Protonix 40 mg by mouth daily 3. Zantac 150 mg by mouth twice daily 4. Furosemide 20 mg by mouth daily 5. Boost supplement twice daily 6. DuoNeb 4 times daily and as needed every 2 hours Continue all other regular home medications as prescribed Please follow-up with Oncology as scheduled by your Please continue Vancomycin every 3 days as instructed by Infectious Disease for recurrent C. diff. Please keep/follow-up with Infectious Disease as instructed by them You will need to follow-up with Urology in the office in 1 [address] appointment [address] Dr[address] Augustin on April 17 at 1:40 PM [facility] within 24-48 hrs Please follow-up/keep all of your subspecialty appointments (Meenakshi Deleon PA-C) Current Hospital Diet Patient's current hospital diet: Regular Diet (Meenakshi Deleon PA-C) Discharge Diet Recommended Diet: Regular Diet (Meenakshi Deleon PA-C) Procedures Procedures Performed: 1. MRI thoracic/lumbar spine 2. CXR (Meenakshi Deleon PA-C) Pending Studies Studies pending at discharge: no (Meenakshi Deleon PA-C) Laboratory Results Last 24 Hours Test 03/31/16 05:40 White Blood Count 3.55 K/uL Red Blood Count 3.60 M/uL Hemoglobin 11.6 g/dL Hematocrit 33.4 % Mean Corpuscular Volume 92.8 fL Mean Corpuscular Hemoglobin 32.2 pg Mean Corpuscular Hemoglobin Concent 34.7 g/dl RDW Standard Deviation 56.2 fL RDW Coefficient of Variation 17.3 % Platelet Count 220 K/uL Mean Platelet Volume 10.2 fL Sodium Level 131 mmol/L Potassium Level 4.9 mmol/L Chloride Level 95 mmol/L Carbon Dioxide Level 24 mmol/L Anion Gap 12.0 mmol/L Blood Urea Nitrogen 41 mg/dl Creatinine 1.10 mg/dl Est Creatinine Clear Calc Drug Dose 48.0 ml/min Estimated GFR () 74.7 Estimated GFR (Non- 64.4 BUN/Creatinine Ratio 37.1 Random Glucose 109 mg/dl Calcium Level 9.1 mg/dl Magnesium Level 2.6 mg/dl (Meenakshi Deleon ., KAMINIC) Medical Emergencies . Who to Call and When: Medical Emergencies: If at any time you feel your situation is an emergency, please call 911 immediately. . (Meenakshi Deleon PA-C) Non-Emergent Contact Non-Emergency issues call your: Primary Care Provider Call Non-Emergent contact if: you have a fever, temperature is above 100.5, your pain is unusual for you, your pain is concerning you, you have any medication questions . (Meenakshi Deleon .KAMINIC) . "Provider Documentation" section prepared by Meenakshi Deleon. (Meenakshi Deleon PA-C) Core Measure Problem Core Measures: None (Meenakshi Deleon PA-C)
--- NOTE | 2016-03-31 12:50 | Discharge Summary ---
Discharge Summary Admission Date: Mar 22, 2016 at 14:30 Discharge Date: Mar 31, 2016 Discharge Disposition: residential facility Principal Diagnosis: Urinary retention Problems/Secondary Diagnoses: 1. A. fib with RVR 2. Pancytopenia 3. Indigestion 4. Urinary retention 5. UTI 6. COPD 7. CAD 8. Metastatic small cell lung CA 9. Fluid collection in the epidural space per MRI of the T2-likely hematoma 10. C. diff colitis 11. Malnutrition Immunizations: Have You Had Influenza Vaccine: Yes Influenza Vaccine Date: Nov 28, 2013 History of Tetanus Vaccine?: unk Tetanus Immunization Date: Oct 20, 2007 History of Pneumococcal: Yes Pneumococcal Date: Oct 19, 2008 History of Hepatitis B Vaccine: No Procedures: CHEST ONE VIEW PORTABLE CLINICAL HISTORY: cough dyspnea COMPARISON STUDY: 01/06/2016 FINDINGS: Chronic bilateral parenchymal fibrotic and interstitial change. Baseline emphysematous change. Diaphragms smooth. Calcific angles are sharp. IMPRESSION: Emphysematous change with evidence for diffuse chronic bilateral parenchymal fibrotic scarring and interstitial change. No new or interval finding. Electronically signed by: Se Bishop M.D. 03/22/2016 11:41 AM Dictated Date/Time: 03/22/2016 11:41 AM The status of this report is Signed. Draft = Not yet reviewed or approved by Radiologist. Signed = Reviewed and approved by Radiologist. THORACIC SPINE MRI HISTORY: Assess for cord compression. 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 COMPARISON: Chest CT 02/24/2016. FINDINGS: Alignment is intact. Trace pleural effusions. Right retroperitoneal metastatic nodules are again noted. The dominant nodule measures 2.8 cm. Atrophic left kidney. Multiple renal cysts. Left lower lobe consolidation remains unchanged. There is complete replacement of the T2 vertebral body and posterior elements with a metastatic lesion. This demonstrates epidural extension surrounding the spinal canal which measures up to 5 mm in thickness. This results in moderate central canal narrowing and abuts but does not significantly compress the cord. The thoracic spinal cord demonstrates a normal signal intensity at this time. However, there is abnormal fluid signal within the epidural space posterior to the T2-T5 vertebral bodies. This is best seen on sagittal sequences images 9 and 10. This measures up to 4 mm in thickness. This abuts but does not significantly deform the thoracic spinal cord. This could represent cystic metastatic extension versus an epidural hematoma. An epidural abscess could also have a similar appearance but is considered less likely given the presentation of findings. Mild degenerative disc disease seen throughout the thoracic spine. Mild anterior wedging within the T12 vertebral body is not significantly changed. There is a 1 cm T2 hypointense focus along the inferior endplate of T12. This is concerning for metastatic deposit and is new from the 06/06/2015 examination. IMPRESSION: 1. Complete replacement of the T2 vertebral body and posterior elements with a metastatic lesion. The soft tissue component demonstrates epidural extension surrounding the spinal canal which results in moderate central canal narrowing. This abuts but does not significant compression of cord. 2. There is also an abnormal fluid signal within the epidural space posterior to the T2-T5 vertebral bodies. This measures up to 4 mm in thickness. This abuts but does not result in deformity of the thoracic spinal cord. This is concerning for an epidural hematoma or cystic metastatic extension. An epidural abscess could also have a similar appearance but is considered less likely given the presentation of findings. 3. A 1 cm lesion along the inferior endplate of T12 which also likely represents a metastatic deposit. Mild anterior wedge-shaped compression deformity is likely pathologic. This does not appear to be acute. 4. The thoracic spinal cord demonstrates a normal signal intensity. 5. Metastatic right retroperitoneal nodules are again noted. 6. Trace bilateral pleural effusions. 7. These findings were discussed with Dr. Cabrera at 11:50 PM on 03/22/2016. Electronically signed by: Paolo Hurtado M.D. 03/23/2016 12:01 AM Dictated Date/Time: 03/22/2016 11:34 PM The status of this report is Signed. Draft = Not yet reviewed or approved by Radiologist. Signed = Reviewed and approved by Radiologist. LUMBAR SPINE MRI HISTORY: Assess for compression of the cauda equina. urinary retention in the setting of met ca to spine TECHNIQUE: Multiplanar multisequence MRI of the lumbar spine was performed without the use of contrast. COMPARISON: Lumbar spine MRI 07/26/2015. FINDINGS: For the purpose of the report the L5-S1 disc space will be located on axial image 23 of 25. Please refer to the same day thoracic spine MRI for further evaluation of this area. No significant change in the metastatic lesion seen within the posterior elements of the L5 level. There is soft tissue extension of tumor into the adjacent erector spinae muscles, unchanged. There may be minimal posterior epidural extension which is also unchanged. However, this does not result in significant mass effect on the thecal sac. No new metastatic lesions identified within the lumbar spine. Mild anterior wedging within the T12 vertebral body and a metastatic deposit are noted. No significant central canal narrowing. There are few small broad-based posterior disc bulges most pronounced at the L2-L3 level. These are not significantly changed. Mild neural foraminal narrowing at L5-S1 persists. Bilateral renal cysts. Mild edema within the erector spinae muscles within the mid to lower lumbar spine is again noted. There is a stable 5 mm metastatic lesion within the left L4 facet. No fractures of dictation within the lumbar spine. IMPRESSION: 1. Overall, no significant change within the lumbar spine compared to the prior study. 2. The metastatic lesions within the posterior elements of L4 and L5 remain unchanged. 3. No significant central canal narrowing. 4. No acute fractures within the lumbar spine. 5. Please refer to the same day thoracic spine MRI for further evaluation of the thoracic spine findings. Electronically signed by: Paolo Hurtado M.D. 03/23/2016 12:00 AM Dictated Date/Time: 03/22/2016 11:49 PM The status of this report is Signed. Draft = Not yet reviewed or approved by Radiologist. Signed = Reviewed and approved by Radiologist. MRI OF THE THORACIC SPINE COMBO CLINICAL HISTORY: History of small cell lung cancer. Thoracic spinal metastatic disease. COMPARISON STUDY: MRI of the thoracic spine dated 03/22/16. Chest CT dated 02/24/2016. TECHNIQUE: MRI of the thoracic spine is performed using various T1 and T2-weighted sequences in the axial and sagittal planes. Contrast-enhanced images were acquired following the IV administration of 6 cc of Gadavist. The examination is degraded by motion artifact. FINDINGS: A mild compression deformity of T12 is unchanged. Vertebral body height is otherwise maintained throughout the thoracic spine. Alignment is preserved. Hyperkyphosis is noted. There is complete marrow replacement identified involving the body of T2 which also involves the posterior elements. There is epidural extension of tumor at this level surrounding the thecal sac, which is greatest posteriorly. This causes [id number] central canal stenosis but does not compressed the thoracic cord end is unchanged from study performed several days ago. A second lesion versus Schmorl's node is noted in the body of T12. No destructive bony lesions are identified at the remaining thoracic levels. The spinous processes appear intact. Degenerative disc desiccation and loss of height is seen throughout. No large disc herniation is present. The anterior epidural fluid questioned on the recent thoracic spinal MRI at the levels of T2-T5 is not seen on today's examination. The thoracic spinal cord is normal in morphology and signal intensity. The conus medullaris terminates at the level of L1. No abnormal cord enhancement is seen on the postcontrast images. The paraspinous soft tissues are grossly unremarkable. There are trace pleural effusions. Scarring/fibrosis is again noted in the left lower lung. The lung parenchyma is not well evaluated by MRI. There are numerous bilateral renal cysts. The left kidney is markedly atrophic as compared to the right. Retroperitoneal metastases are unchanged. IMPRESSION: 1. No significant change in metastatic disease involving T2 with epidural extension as detailed above when compared to the 03/22/2016 examination. 2. No cord compression is identified. 3. A second lesion versus a Schmorl's node in the body of T12 is also unchanged. 4. The epidural fluid questioned on the 03/22/2016 examination is no longer identified. No epidural fluid collection is seen on today's examination. Electronically signed by: Raman Loco M.D. 03/26/2016 6:13 PM Dictated Date/Time: 03/26/2016 5:56 PM The status of this report is Signed. Draft = Not yet reviewed or approved by Radiologist. Signed = Reviewed and approved by Radiologist. Consultations: Oncology- Dr. Phillips Urology- Dr. Augustin, Carolyn Cullen PA-C, Dr. Mike (Meenakshi Deleon PA-C) Medication Reconciliation New Medications: Dexamethasone (Decadron) 4 Mg Tab 4 MG PO UD, #5 TAB take 1 tablet twice daily x 1 day then 1/2 tablet twice daily x 2 days then take 1/2 tablet once daily x 2 days Nebulizer Machine (Home Use) (Nebulizer Machine (Home Use) ) Mis 1 EA N/A UD, #1 Oxycodone Immediate Rel Tab (Roxicodone Ir) 5 Mg Tab 1 TAB PO Q4H PRN for Pain, #20 TAB Furosemide (Furosemide) 20 Mg Tab 20 MG PO QAM for 30 Days, TAB Ipratropium-Albuterol (Duoneb) 3 Ml Nebu 3 ML INH QIDR for 30 Days Ipratropium-Albuterol (Duoneb) 3 Ml Nebu 3 ML INH Q2H PRN for SOB/WHEEZING for 30 Days Pantoprazole (Pantoprazole Sodium) 40 Mg Tab 40 MG PO QAM for 30 Days, TAB Ranitidine HCl (Ranitidine HCl) 150 Mg Tab 150 MG PO BID for 30 Days, #60 TAB [Enteral Nutrition Formula] () 1 CAN LIQD 1 CAN PO BIDM for 30 Days Continued Medications: Acetaminophen (Tylenol) 500 Mg Tab 500 MG PO TID PRN for Pain, TAB Aspirin (Aspirin Ec) 81 Mg Tab 81 MG PO DAILY Clopidogrel (Plavix) 75 Mg Tab 75 MG PO DAILY DO NOT TAKE IF THERE IS BLOOD IN YOUR URINE Diltiazem HCl (Diltiazem HCl ER) 180 Mg Capcr 180 MG PO QAM for 30 Days Diphenhydramine Hcl (Benadryl) 25 Mg Cap 50 MG PO HS PRN for Pain, CAP Ergocalciferol (Vitamin D2) 400 Unit Tab 1 TAB PO DAILY Fentanyl (Fentanyl) 25 Mcg Tdsy Fish Oil (Quitman-3) 1 Ea Cap 1 CAP PO DAILY, CAP Fluticasone Propionate (Nasal) (Flonase Allergy Relief) 50 Mcg/Act Spr 1-2 SPRAYS BRITTANY DAILY Folic Acid (Folvite) 400 Mcg Tab 400 MCG PO DAILY, TAB Gemfibrozil (Lopid) 600 Mg Tab 600 MG PO BID Isosorbide Mononitrate Ext Rel (Imdur Ext Rel) 120 Mg Ertab 120 MG PO QAM, TAB Megestrol Acetate (Megace) 40 Mg Tab 40 MG PO QID, TAB Metoprolol Succinate (Metoprolol Succinate ER) 50 Mg Tabcr 100 MG PO DAILY for 30 Days Vancomycin Hcl (Vancocin Hcl) 125 Mg Cap 125 MG PO UD Vitamin E (E-1000) 1,000 Unit Cap 1000 UNITS PO DAILY Discontinued Medications: Hydrocodon/Acetaminophen 5MG/300MG (Vicodin (5MG/300MG)) Unknown Strength Tab 1 TAB PO Q4H PRN for Pain, TAB Nutritional Supplements (Boost) 1 Liq Liq 1 CAN PO DAILY Referrals At Discharge Follow up Referrals: Physician Referral - Within 1 Week with Drew Dominguez M.D. Urologist Referral - Within 1-2 Weeks with Wojciech Augustin M.D. Discharge Exam Review of Systems: Constitutional: No chills, No fatigue, No fever, No sweats, No weakness Respiratory: + shortness of breath, No cough, No hemoptysis Cardiovascular: No chest pain, No edema, No palpitations Abdomen: No constipation, No diarrhea, No nausea, No pain, No vomiting Musculoskeletal: No calf pain, No joint pain, No muscle pain, No swelling Genitourinary - Male: + problem reported (Maxwell ) Neurologic: No numbness/tingling, No weakness Psychiatric: No anxiety, No depression symptoms Hematologic / Lymphatic: No abnormal bleeding/bruising Integumentary: No itch, No new/changing skin lesions, No rash Physical Exam: General Appearance: no apparent distress, + thin Eyes: normal inspection, PERRL ENT: hearing grossly normal Neck: supple Respiratory/Chest: no respiratory distress, no accessory muscle use, + wheezing (slight expiratory wheeze throughout ) Cardiovascular: regular rate, rhythm Abdomen / GI: normal bowel sounds, non tender, soft Extremities: no calf tenderness, normal range of motion Neurologic/Psychiatric: alert, normal mood/affect, oriented x 3 Skin: normal color, warm/dry, no rash (Meenakshi Deleon, PA-C) Hospital Course HPI: This patient is a pleasant 76-year-old male that presents emergency department with a main complaint of urinary retention. He claims he has not urinated since Wednesday. The patient has a very complicated medical history. 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 He is currently undergoing chemotherapy and radiation. The patient also has a history of prostate cancer. He had a prostatectomy performed he thinks in approximately 2009. Upon review of outpatient records, the patient had a cystoscopy done on March 18 for a main complaint of hematuria. There was a urethral stricture noted. He is followed by Dr. Augustin from urology. The patient did also notes some dysuria last week. He denies any fever or chills. No nausea or vomiting. He states that his breathing is at baseline. He uses 2- 3 L of oxygen at night only. The patient also has a history of paroxysmal A. fib. Upon arrival in the ED he was found to be in A. fib with RVR of a heart rate in the 140s. Blood pressure was stable. He was given a Cardizem bolus 10 mg IV. A drip was then started. His rate is improved in the low 100s. He was given a 500 mL bolus. Urine is consistent with a UTI. He was started on Rocephin. Kidney function is intact. CBC shows pancytopenia. Of note, the patient is also currently being treated for C. difficile colitis. He denies any diarrhea, and neck she notes that his stools have been more formed. A. fib with RVR- likely secondary to sepsis from UTI source: - Continue Diltiazem ER 180 mg daily. - Continue Metoprolol ER 100 mg twice daily - Too much of a fall risk for anticoagulation (also thrombocytopenia) Pancytopenia secondary to chemo: - DVT prophylaxis was discontinued - Resume Plavix and ASA--> plt resolving - Dr. Phillips following Indigestion: - Zantac 150 mg PO BID and Protonix 40 mg PO daily UTI in the setting of urinary retention, sepsis, resolved: - Treated with Rocephin 2 g IV daily x1 week ; Unable to obtain a good urine culture-->tx based on previous cx- Serratia, Citrobacter - Urology consulted. Will be discharged with a Maxwell and urologic follow-up to be in 1 week. Urinary retention-? neurogenic bladder vs urethral stricture - MRI of the spine reviewed. No signs of cord compression. Likely urethral stricture culprit COPD, with hx of small cell lung cancer: - Minor exacerbation Decadron 4 mg po BID (will need taper after discharge), plus nebs, pt states uses oxygen and nebs at home History of coronary artery disease. No anginal symptoms today. Had a mild elevation in his troponin, that is now trending down. This is likely secondary to A. fib with RVR/demand ischemia - Continue Imdur extended release 120 mg daily - Continue Plavix, ASA Metastatic small cell lung CA-mets to brain, thoracic, lumbar spine, retroperitoneum-recent CT/MRI shows disease progression -progressive disease at T2 and in the retroperitoneum - Fentanyl 25 mcg patch - Added oxy IR 5 mg po q 4 hr prn Rx given - Wishes to continue chemo/radiation, but it is currently on hold d/t pancytopenia - in contact with oncology office for follow appointment ? Fluid collection in the epidural space per MRI of the T2-likely hematoma. No longer seen on MRI 03/26 - Resume Plavix and ASA - Monitor for increased pain C. diff colitis-resolved - Patient is currently on Vancomycin every 3 days as per Infectious Disease due recurrent c. diff Nutrition: Boost supplement BID DVT prophylaxis - AC contraindicated - TEDS, SCDs - PLEASE ENCOURAGE AMBULATION- high risk for DVT w/ CA CODE STATUS - LEVEL V DO NO RESUSCITATE DISPO - Discharge to [facility] Total Time Spent: Greater than 30 minutes This includes examination of the patient, discharge planning, medication reconciliation, and communication with other providers. (Meenakshi Deleon PA-C) Discharge Instructions Please refer to the electronic Patient Visit Report (Discharge Instructions) for additional information. (Meenakshi Deleon PA-C) Follow-Up Please follow-up with your PCP within 5-7 days from discharge at [facility] Follow-up with Urology in 1 week Please follow up with Dr. Augustin on April 17 at 1:40PM Keep follow-up with ID as instructed by them Please follow-up/keep all of your subspecialty appointments (Meenakshi Deleon PA-C) Additional Copies To Drew Dominguez M.D. Reviewed: Pt Seen/Exam by Me, MORELIA Notes, Labs (Amanda Guaman MD) History Physician Home Service Demonstrator Supervision Note: I interviewed and examined the patient. Discussed with JULIETA Deleon and agree with findings and plan as documented in the note. Any exceptions or clarifications are listed here: Pt has c/o his chronic daily chest pain and had some nausea resolved with Zofran. Feels SOB chronically but at baseline on day of discharge. Low appetite. Says he doesn't want to do any more XRT as it is too painful. Vitals reviewed Cachectic appearing, chronically ill RRR no audible mgr Diffuse rhonchi and crackles at bases, wheezing diffusely Abd +BS, soft, min TTP LLQ w/o guarding or rebound Ext with sarcopenia and no ttp of calves, no edema A/P: 76 yo male with metastatic lung CA here with UTI, sepsis from urinary retention secondary to urethral stricture requiring Maxwell catheter placement. Completed abx course, voiding trial to be done this week in office with Urology. Pain control and symptomatic control of cancer, consider Palliative Care Consult in near future Taper dexamethasone down for COPD exacerbation. Added on Zantac for chronic CP which sounds like GERD especially in light of being on steroids, continue PPI Expect d/c to SNF today (Amanda Guaman MD)
== END 2016-03-31 14:44 | DRG 871 ==
LOC: CANRESERV → ENRESERVDT → ENRESERVTM → C.EDB 10:14 → C.2E 14:30 → EDBEDREQSVC 14:48 → EDBEDREQ 03-24 15:52 → C.4E 03-24 16:58
PROVIDERS: ADMIT Internal Medicine; ATTEND Family Medicine
DX: A41.9 Sepsis, unspecified organism (principal); J96.21 Acute and chronic respiratory failure with hypoxia; D61.810 Antineoplastic chemotherapy induced pancytopenia; N39.0 Urinary tract infection, site not specified; J44.1 Chronic obstructive pulmonary disease with (acute) exacerbation; J44.0 Chronic obstructive pulmonary disease with (acute) lower respiratory infection; A04.7 Enterocolitis due to Clostridium difficile; E46 Unspecified protein-calorie malnutrition; C34.90 Malignant neoplasm of unspecified part of unspecified bronchus or lung; C79.31 Secondary malignant neoplasm of brain; C79.51 Secondary malignant neoplasm of bone; J90 Pleural effusion, not elsewhere classified; Z85.46 Personal history of malignant neoplasm of prostate; I73.9 Peripheral vascular disease, unspecified; Z66 Do not resuscitate; I48.0 Paroxysmal atrial fibrillation; Z83.3 Family history of diabetes mellitus; Z82.49 Family history of ischemic heart disease and other diseases of the circulatory system; D70.9 Neutropenia, unspecified; I10 Essential (primary) hypertension; I25.10 Atherosclerotic heart disease of native coronary artery without angina pectoris; R33.9 Retention of urine, unspecified; F17.200 Nicotine dependence, unspecified, uncomplicated; E78.00 Pure hypercholesterolemia, unspecified; D69.6 Thrombocytopenia, unspecified; K21.9 Gastro-esophageal reflux disease without esophagitis; Z51.5 Encounter for palliative care; M51.34 Other intervertebral disc degeneration, thoracic region; N28.1 Cyst of kidney, acquired; N35.9 Urethral stricture, unspecified; Z51.0 Encounter for antineoplastic radiation therapy